=== PATIENT | male | born 1975 | race Caucasian/White ===

== ENCOUNTER 2023-05-17 11:47 | Day surgery (SDC) | payer OTHER ==
[~2023-05-17 11:47] MED LIST: ACETAMINOPHEN TAB 500 MG TAB PO PRN; DEXAMETHASONE SOD PHOSPHATE 4 MG/ML 1 ML VIAL IV ONE; HEPARIN SODIUM,PORCINE/PF 5,000 UNIT/0.5 ML SYRINGE SQ PRN; HYDROmorphone 0.5 MG/0.5 ML SYRINGE IVP PRN; LACTATED RINGERS 1,000 ML IV SCH; LIDOCAINE 1% (10MG/ML) FOR IV START INTRADERMA PRN; MIDAZOLAM 2 MG/2 ML VIAL IV PRN; ONDANSETRON 4 MG/2 ML VIAL IVP ONE; Pre Op ABX Message 1 EACH MISC MISCELLANE ONE
[2023-05-17 12:16] VITALS: RESP 16; TEMP 98.2
[2023-05-17 12:29] LABS: Glucose,Whole Blood 155 mg/dL (70-110)
[2023-05-17] MEDS ORDERED: fentaNYL (PF) 50 MCG/ML 2 ML AMP ONE (12:35)
[2023-05-17] MEDS ORDERED: KETAMINE HCL IN 0.9 % NACL 50 MG/5 ML SYRINGE ONE (12:35)
[2023-05-17] MEDS ORDERED: PROPOFOL 10 MG/ML 20 ML VIAL IV ONE (12:35)
[2023-05-17] MEDS ORDERED: MIDAZOLAM 2 MG/2 ML VIAL ONE (12:35)
[2023-05-17] MEDS ORDERED: LIDOCAINE 1%-EPI 1:100,000 50 ML VIAL SQ ONE ×2 (12:37)
[2023-05-17] MEDS ORDERED: traMADol 50 MG TAB PO PRN (12:55)
[2023-05-17] MEDS ORDERED: ACETAMINOPHEN TAB 325 MG TAB PO PRN (12:55)
[2023-05-17] MEDS ORDERED: HYDROmorphone 0.5 MG/0.5 ML SYRINGE IVP PRN (12:55)
[2023-05-17] MEDS ORDERED: LACTATED RINGERS 1,000 ML IV ONE (12:55)
[2023-05-17] MEDS ORDERED: NALOXONE 0.4 MG/ML 1 ML VIAL IV PRN (12:55)
--- NOTE | 2023-05-17 12:59 | P.OP ---
Date of Procedure: 05/17/23 Preoperative Diagnosis: Back abscess Postoperative Diagnosis: Chronic back abscess Procedure(s) Performed: Incision and drainage of chronic back abscess 15 cm Anesthesia: MAC Surgeon: Massimo Maki Estimated Blood Loss (ml): 5 Pathology: other (Wound culture) Condition: stable Disposition: PACU Description of Procedure: The patient's placed on the operative table in the lateral received IV sedation. His back was prepped and draped usual fashion. The patient had a deep cuta neous abscess. The abscess 15 cm diameter. The skin was incised with 15 blade. And then the abscess cavity is entered. Cultures were obtained. Approximately 50 mL of purulent fluid was removed. There is necrotic skin and fat in the abscess cavity. This was sharply debrided. The wound was then packed with wet-to-dry Kerlix dressing. Patient top she will. Sent to recovery room in stable condition.
[2023-05-17 13:53] VITALS: BP 166/84; PULSE 113
[2023-05-17] MEDS ORDERED: LEVOFLOXACIN 500MG-D5W PMX 500 MG in DEXTROSE/WATER 1 100ML.BAG IVPB SCH (14:00)
[2023-05-18] MEDS ORDERED: ENOXAPARIN 40 MG/0.4 ML SYRINGE SQ SCH (09:00)
== END 2023-05-17 16:54 | disposition left against medical advice (07) ==
LOC: OR 11:47 → 5NMEDONC 12:54 → OR 16:54
PROVIDERS: ATTEND Surgery
DX: L02.212 Cutaneous abscess of back [any part, except buttock and flank] (principal); E11.9 Type 2 diabetes mellitus without complications; I10 Essential (primary) hypertension; E78.5 Hyperlipidemia, unspecified; K21.9 Gastro-esophageal reflux disease without esophagitis; F17.210 Nicotine dependence, cigarettes, uncomplicated; Z88.5 Allergy status to narcotic agent; Z79.84 Long term (current) use of oral hypoglycemic drugs; Z88.8 Allergy status to other drugs, medicaments and biological substances; Z88.1 Allergy status to other antibiotic agents; Z79.899 Other long term (current) drug therapy
CPT/HCPCS: 10060; 87070; 87205; 87075; 87077; 87186; J2250; J1100; J0690; J2405; J3010; J2704; J1644

== ENCOUNTER 2024-01-16 08:29 | Day surgery (SDC) | payer OTHER ==
[2024-01-11 16:22] VITALS: BMI 26.4
[~2024-01-16 08:29] MED LIST changes: -ACETAMINOPHEN TAB 500 MG TAB PO PRN; -DEXAMETHASONE SOD PHOSPHATE 4 MG/ML 1 ML VIAL IV ONE; -HEPARIN SODIUM,PORCINE/PF 5,000 UNIT/0.5 ML SYRINGE SQ PRN; -HYDROmorphone 0.5 MG/0.5 ML SYRINGE IVP PRN; -LACTATED RINGERS 1,000 ML IV SCH; -LIDOCAINE 1% (10MG/ML) FOR IV START INTRADERMA PRN; -MIDAZOLAM 2 MG/2 ML VIAL IV PRN; -ONDANSETRON 4 MG/2 ML VIAL IVP ONE
[2024-01-16] MEDS ORDERED: MIDAZOLAM 2 MG/2 ML VIAL IV PRN (08:35)
[2024-01-16] MEDS ORDERED: DEXAMETHASONE SOD PHOSPHATE 4 MG/ML 1 ML VIAL IV ONE (08:35)
[2024-01-16] MEDS ORDERED: fentaNYL (PF) 50 MCG/ML 2 ML AMP IV PRN (08:35)
[2024-01-16] MEDS: IV FLUID CONTINUATION 1,000 ML IV ONE (08:57)
[2024-01-16 08:59] LABS: Glucose,Whole Blood 229 mg/dL (70-110)
[2024-01-16] MEDS: LACTATED RINGERS 1,000 ML IV SCH (09:01)
[2024-01-16 09:02] VITALS: RESP 16
[2024-01-16] MEDS: ONDANSETRON 4 MG/2 ML VIAL IVP ONE (09:09)
[2024-01-16] MEDS: SCOPOLAMINE 1 MG/72 HR PATCH TRANSDERM ONE (09:09)
[2024-01-16] MEDS: INSULIN ASPART (NovoLOG) 100 UNIT/ML VIAL SQ ONE (09:10)
[2024-01-16] MEDS ORDERED: ceFAZolin 1 GM/50 ML BAG (PMX) ONE (09:53)
[2024-01-16] MEDS ORDERED: SUCCINYLCHOLINE CHLORIDE 200 MG/10 ML VIAL IV ONE (09:53)
[2024-01-16] MEDS ORDERED: PROPOFOL 10 MG/ML 20 ML VIAL IV ONE (09:53)
[2024-01-16] MEDS ORDERED: fentaNYL (PF) 50 MCG/ML 2 ML AMP ONE (09:53)
[2024-01-16] MEDS ORDERED: LIDOCAINE 1% INJ 10MG/ML (20 ML MDV) ONE (09:53)
[2024-01-16] MEDS ORDERED: PHENYLEPHRINE 10 MG/ML VIAL ONE (09:53)
[2024-01-16] MEDS ORDERED: MIDAZOLAM 2 MG/2 ML VIAL ONE (09:53)
[2024-01-16] MEDS: LIDOCAINE 1%-EPI 1:100,000 20 ML VIAL SQ ONE ×2 (10:04→10:37)
[2024-01-16 10:52] VITALS: TEMP 97.6
--- NOTE | 2024-01-16 10:54 | P.OP ---
Date of Procedure: 01/16/24 Preoperative Diagnosis: infected sebaceous cyst with back abscess Postoperative Diagnosis: same Procedure(s) Performed: excision of infected sebaceous cyst/abscess Anesthesia: MEGANA Surgeon: Massimo Maki Estimated Blood Loss (ml): 5 Pathology: other (sebaceous cyst) Condition: stable Disposition: PACU Description of Procedure: the patient's placed on the operative table in the lateral position of receiving general anesthesia. His back was prepped and draped usual fashion. Patient had an area of indurated skin due to chronic abscess the sebaceous cyst. Elliptical skin incision was made. The specimen measured approximately 8 x 4 x 3 cm. left cautery used to dissect the specimen free and sent to pathology. The Bovie hemostasis. Ththe wound was packed with wet to dry Kerlix suture.
[2024-01-16 11:42] VITALS: BP 118/74; PULSE 75
== END 2024-01-16 11:56 | disposition home health service (06) ==
LOC: OR 08:29
PROVIDERS: ATTEND Surgery
DX: L02.212 Cutaneous abscess of back [any part, except buttock and flank] (principal); L72.3 Sebaceous cyst; M79.89 Other specified soft tissue disorders; I10 Essential (primary) hypertension; F32.A Depression, unspecified; K21.9 Gastro-esophageal reflux disease without esophagitis; E11.9 Type 2 diabetes mellitus without complications; F17.210 Nicotine dependence, cigarettes, uncomplicated; Z88.5 Allergy status to narcotic agent; Z91.012 Allergy to eggs; Z88.1 Allergy status to other antibiotic agents; Z79.899 Other long term (current) drug therapy
CPT/HCPCS: 11406; J2250; J0330; J2405; J2001; J3010; J0690; J2704; J2371; 88304

== ENCOUNTER 2024-10-16 20:46 | Observation (INO) | payer OTHER ==
[2024-10-16] MEDS: ONDANSETRON 4 MG/2 ML VIAL IVP STA (21:29)
[2024-10-16] MEDS: KETOROLAC 15 MG/ML 1 ML VIAL IVP STA (21:30)
[2024-10-16] MEDS: SODIUM CHLORIDE 0.9% 1,000 ML IV STA (21:30)
[2024-10-16 21:52] LABS: Basophils % (A) 0 %; Eosinophils # (A) 0.1 k/uL (0-0.7); Eosinophils % (A) 1 %; HCT 47.2 % (39.0-53.0); HGB 15.9 gm/dL (13.0-17.5); Lymphocytes % (A) 6 %; MCH 30.8 pg (25.0-35.0); MCHC 33.8 g/dL (31.0-37.0); MCV 91.2 fL (80.0-100.0); Monocytes # (A) 0.6 k/uL (0-1.0); Monocytes % (A) 4 %; Neutrophils # (A) 14.3 k/uL (1.3-7.7); Neutrophils % (A) 89 %; Platelet Count 321 k/uL (150-450); RBC 5.18 m/uL (4.30-5.90); RDW 12.7 % (11.5-15.5); WBC 16.1 k/uL (3.8-10.6)
[2024-10-16 22:03] LABS: ALT 15 U/L (4-49); AST 18 U/L (17-59); African American GFR (CKD) >90 (>60 ml/min/1.73 sqM); Albumin 4.6 g/dL (3.5-5.0); Alkaline Phosphatase 89 U/L (38-126); Amylase 43 U/L (30-110); Anion Gap 23 mmol/L; Blood Urea Nitrogen 41 mg/dL (9-20); Calcium 9.5 mg/dL (8.4-10.2); Carbon Dioxide 17 mmol/L (22-30); Chloride 94 mmol/L (98-107); Glucose 375 mg/dL (74-99); Lipase 23 U/L (23-300); Non-African American GFR(CKD) >90 (>60 ml/min/1.73 sqM); Potassium 4.3 mmol/L (3.5-5.1); Sodium 134 mmol/L (137-145); Total Bilirubin 0.9 mg/dL (0.2-1.3); Total Protein 7.5 g/dL (6.3-8.2)
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
[2024-10-16] MEDS: METOCLOPRAMIDE 5 MG/ML 2 ML VIAL IVP STA (22:28)
[2024-10-16 22:33] LABS: Influenza A Not Detected (Not Detectd); Influenza B Not Detected (Not Detectd); RSV Not Detected (Not Detectd)
[2024-10-17 00:18] LABS: Glucose,Whole Blood 336 mg/dL (70-110)
[2024-10-17] MEDS: INSULIN REGULAR 100 UNIT in SODIUM CHLORIDE 0.9% 100 ML IV SCH (00:36)
[2024-10-17 01:37] LABS: Glucose,Whole Blood 233 mg/dL (70-110)
[2024-10-17] MEDS: SODIUM CHLORIDE 0.9% 1,000 ML IV SCH (01:49)
[2024-10-17] MEDS: ONDANSETRON 4 MG/2 ML VIAL IVP STA (02:14)
[2024-10-17] MEDS: D5-0.45% NACL WITH KCL 20MEQ/L 1,000 ML IV SCH (02:15)
[2024-10-17 03:02] LABS: Glucose,Whole Blood 128 mg/dL (70-110)
[2024-10-17 04:11] LABS: Glucose,Whole Blood 128 mg/dL (70-110)
[2024-10-17 04:31] LABS: African American GFR (CKD) >90 (>60 ml/min/1.73 sqM); Anion Gap 11 mmol/L; Blood Urea Nitrogen 45 mg/dL (9-20); Carbon Dioxide 24 mmol/L (22-30); Chloride 98 mmol/L (98-107); Glucose 133 mg/dL (74-99); Non-African American GFR(CKD) >90 (>60 ml/min/1.73 sqM); Sodium 133 mmol/L (137-145)
[2024-10-17 05:14] LABS: Glucose,Whole Blood 162 mg/dL (70-110)
[2024-10-17 05:53] LABS: Appearance,Urine Clear (Clear); Bilirubin,Urine Negative (Negative); Blood,Urine Trace (Negative); Color,Urine Light Yellow; Glucose,Urine (UA) 4+ (Negative); Hyaline Casts,Urine 1 /lpf (0-2); Leukocyte Esterase,Urine Negative (Negative); Mucus,Urine Rare /hpf; Nitrite,Urine Negative (Negative); Protein,Urine 2+ (Negative); RBC,Urine 1 /hpf (0-5); Specific Gravity,Urine 1.032 (1.001-1.035); Urobilinogen,Urine <2.0 mg/dL (<2.0); WBC,Urine 1 /hpf (0-5)
[2024-10-17 06:10] LABS: Ketones,Urine 2+ (Negative)
[2024-10-17 06:15] LABS: Glucose,Whole Blood 184 mg/dL (70-110)
[2024-10-17] MEDS: HYDROcodone/APAP 10-325MG 1 EACH TAB PO PRN (06:16)
[2024-10-17 07:29] LABS: Glucose,Whole Blood 195 mg/dL (70-110)
[2024-10-17 07:51] LABS: Sodium 131 mmol/L (137-145)
[2024-10-17 07:52] LABS: African American GFR (CKD) >90 (>60 ml/min/1.73 sqM); Anion Gap 10 mmol/L; Blood Urea Nitrogen 39 mg/dL (9-20); Carbon Dioxide 24 mmol/L (22-30); Chloride 97 mmol/L (98-107); Glucose 188 mg/dL (74-99); Non-African American GFR(CKD) >90 (>60 ml/min/1.73 sqM); Potassium 4.1 mmol/L (3.5-5.1)
[2024-10-17] MEDS: ONDANSETRON 4 MG/2 ML VIAL IVP PRN (08:08)
[2024-10-17 08:30] LABS: Glucose,Whole Blood 178 mg/dL (70-110)
[2024-10-17 09:29] LABS: Glucose,Whole Blood 168 mg/dL (70-110)
[2024-10-17 10:29] LABS: Glucose,Whole Blood 173 mg/dL (70-110)
[2024-10-17 10:39] LABS: ALT 13 U/L (4-49); AST 24 U/L (17-59); African American GFR (CKD) >90 (>60 ml/min/1.73 sqM); Alkaline Phosphatase 78 U/L (38-126); Anion Gap 10 mmol/L; Blood Urea Nitrogen 33 mg/dL (9-20); Calcium 9.1 mg/dL (8.4-10.2); Carbon Dioxide 24 mmol/L (22-30); Chloride 100 mmol/L (98-107); Glucose 175 mg/dL (74-99); Non-African American GFR(CKD) >90 (>60 ml/min/1.73 sqM); Potassium 3.9 mmol/L (3.5-5.1); Sodium 134 mmol/L (137-145); Total Bilirubin 0.6 mg/dL (0.2-1.3); Total Protein 6.9 g/dL (6.3-8.2)
[2024-10-17 11:40] LABS: Glucose,Whole Blood 166 mg/dL (70-110)
[2024-10-17 13:12] LABS: Glucose,Whole Blood 139 mg/dL (70-110)
[2024-10-17 14:11] LABS: Glucose,Whole Blood 151 mg/dL (70-110)
[2024-10-17 15:44] LABS: Glucose,Whole Blood 144 mg/dL (70-110)
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
[2024-10-17 17:54] LABS: Glucose,Whole Blood 155 mg/dL (70-110)
[2024-10-17] MEDS: GABAPENTIN 300 MG CAP PO SCH (17:55)
[2024-10-17] MEDS: ATORVASTATIN 10 MG TAB PO SCH (17:55)
[2024-10-17] MEDS: METOPROLOL SUCCINATE (ER) 25 MG TAB.ER.24H PO SCH (17:55)
[2024-10-17] MEDS: DAPAGLIFLOZIN PROPANEDIOL 10 MG TABLET PO SCH (17:56)
[2024-10-17] MEDS: FAMOTIDINE 20 MG TAB PO SCH (17:56)
[2024-10-17] MEDS: INSULIN LISPRO (HumaLOG) 100 UNIT/ML 10 mL VL SQ SCH (18:06)
[2024-10-17] MEDS: SODIUM CHLORIDE 0.9% 1,000 ML IV STA (18:07)
[2024-10-17] MEDS: HYDROcodone/APAP 10-325MG 1 EACH TAB PO SCH (18:09)
--- NOTE | 2024-10-17 19:39 | CT ---
EXAMINATION TYPE: CT abdomen pelvis wo con DATE OF EXAM: 10/17/2024 5:33 PM COMPARISON: Previous CT study dated 07/15/2014. CLINICAL INDICATION: Male, 49 years old with history of Abdominal pain and vomiting; Abdominal pain a nd cramping TECHNIQUE: Axial CT abdomen pelvis wo con;Sagittal and coronal reformats were created on a separate workstation. Oral contrast used: without Oral Contrast (none if empty) CT DLP: 632.1 mGycm, Automated exposure control for dose reduction was used. FINDINGS: LOWER CHEST: No acute abnormality. Partially visualized coronary artery calcifications. ABDOMEN LIVER: Diffusely hypoattenuating parenchyma. GALLBLADDER AND BILE DUCTS: Unremarkable. PANCREAS: Unremarkable. SPLEEN: Unremarkable. ADRENAL GLANDS: Unremarkable. KIDNEYS AND URETERS: No evidence of hydronephrosis or renal calculus. The ureters are unremarkable. PELVIS BLADDER: Circumferential wall thickening. REPRODUCTIVE: Unremarkable. ABDOMEN & PELVIS STOMACH AND BOWEL: . Scattered diverticula are noted throughout the colon. No evidence of bowel obstr uction. Impacted rectosigmoid colonic stool with mild wall thickening and adjacent fat stranding. Temi endix is normal. PERITONEUM/RETROPERITONEUM: No evidence of pneumoperitoneum or free fluid. VASCULATURE: No evidence of aortic aneurysm. MUSCULOSKELETAL: No acute osseous abnormalities LYMPH NODES: No gross evidence for lymphadenopathy. SOFT TISSUE/ABDOMINAL WALL: Unremarkable IMPRESSION: 1. Impacted rectosigmoid colonic stool with additional findings suggesting mild stercoral colitis. 2. Circumferential urinary bladder wall thickening, recommend correlation with urinalysis for cystit is. 3. Moderate diverticulosis. [facility], , 10/17/2024 7:37 PM
[2024-10-17 21:42] LABS: Glucose,Whole Blood 138 mg/dL (70-110)
[2024-10-18 05:35] LABS: Glucose,Whole Blood 160 mg/dL (70-110)
[2024-10-18 07:39] LABS: Glucose,Whole Blood 120 mg/dL (70-110)
[2024-10-18] MEDS: PIOGLITAZONE 15 MG TAB PO SCH (08:30)
[2024-10-18] MEDS: INSULIN GLARGINE (LANTUS) 100 UNIT/ML SYR SQ SCH (08:30)
[2024-10-18 10:15] LABS: Basophils # (A) 0.05 X 10*3/uL (0.00-0.10); Basophils % (A) 0.4 %; Eosinophils # (A) 0 X 10*3/uL (0.04-0.35); Eosinophils % (A) 0 %; HCT 45.6 % (39.6-50.0); HGB 15.2 g/dL (13.0-17.0); Lymphocytes # (A) 1.46 X 10*3/uL (0.90-5.00); Lymphocytes % (A) 12.1 %; MCH 30.7 pg (27.0-32.0); MCHC 33.3 g/dL (32.0-37.0); MCV 92.1 FL (80.0-97.0); Mean Platelet Volume 10.8 FL (9.5-12.2); Monocytes # (A) 0.86 X 10*3/uL (0.20-1.00); Monocytes % (A) 7.1 %; NRBC Per 100 WBC 0 X 10*3/uL (0.00-0.01); Neutrophils # (A) 9.66 X 10*3/uL (1.80-7.70); Neutrophils % (A) 79.9 %; Platelet Count 269 X 10*3/uL (140-440); RBC 4.95 X 10*6/uL (4.40-5.60); RDW 12.5 % (11.5-14.5); WBC 12.09 X 10*3/uL (4.50-10.00)
[2024-10-18 11:04] LABS: ALT 13 U/L (10-49); AST 27 U/L (14-35); Albumin/Globulin Ratio 1.43 Ratio (1.60-3.17); Alkaline Phosphatase 82 U/L (41-126); BUN/Creat Ratio 27.75 Ratio (12.00-20.00); Blood Urea Nitrogen 22.2 mg/dL (9.0-27.0); Calcium 9.3 mg/dL (8.7-10.3); Carbon Dioxide 20.2 mmol/L (21.6-31.8); Chloride 98 mmol/L (96-109); Globulin 2.8 g/dL (1.6-3.3); Glucose 132 mg/dL (70-110); Potassium 4.1 mmol/L (3.5-5.5); Sodium 134 mmol/L (135-145); Total Bilirubin 0.5 mg/dL (0.3-1.2); Total Protein 6.8 g/dL (6.2-8.2)
[2024-10-18 12:18] LABS: Glucose,Whole Blood 123 mg/dL (70-110)
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
[2024-10-18 15:24] VITALS: BMI 24.4
[2024-10-18] MEDS: LACTULOSE 20 GM/30 ML CUP PO SCH (15:50)
--- NOTE | 2024-10-18 20:14 | P.PN ---
Subjective Progress Note Date: 10/18/24 Kurt Joseph, is a 49-year-old male who presented to [facility] with a chief complaint of abdominal pain nausea and vomiting He was evaluated in the emergency room vital examination on presentation revealed a temperature of 97.8 pulse 119 respiration 20 blood pressure 176/103 pulse ox 99% on room air Laboratory data revealed a white blood count of 16.1 hemoglobin 15.9 platelet count 321 sodium 134 potassium 4.3 chloride 94 CO2 17 BUN 41 creatinine 0.98 lactic acid 2.8 Patient was started on IV fluid and insulin drip and admitted to telemetry floor Past medical history is significant for insulin-dependent diabetes mellitus, hypertension, hyperlipidemia, depression, peripheral vascular disease with previous history of lower extremity amputation, underlying history of tobacco abuse, history of peripheral neuropathy, history of gastroparesis, with gastroesophageal reflux disease. On 10/18/2024 patient was seen and examined on the medical floor he is alert and oriented x 3 in no apparent distress he is still complaining of abdominal pain CT scan of the abdomen was done and revealed evidence of constipation with colitis, patient will be kept on full liquid diet surgical consultation was requested, otherwise patient denies any complaints there is no fever or chills no headache or dizziness no chest pain no shortness of breath no cough no nausea or vomiting no diarrhea no blood in the stools and no urinary symptoms. Objective - Vital Signs Vital signs: Vital Signs Temp 97.9 F 10/18/24 12:14 Pulse 90 10/18/24 12:14 Resp 18 10/18/24 12:14 BP 138/61 10/18/24 12:14 Pulse Ox 96 10/18/24 12:14 FiO2 Intake & Output 10/17/24 10/18/24 10/18/24 18:59 06:59 18:59 Intake Total 18.661 Output Total 700 Balance 18.661 -700 Weight 81.647 kg Intake: Intake, IV Titration 18.661 Amount Insulin Regular 100 unit 18.661 In Sodium Chloride 0.9% 100 ml @ 0.1 UNITS/KG/HR 8.246 mls/hr IV .[id number] [facility] Rx#:[id number] Output: Urine 700 Other: Voiding Method Urinal - Exam In general patient is alert and oriented x 3 in no distress HEENT head normocephalic and atraumatic Neck is supple no JVD no goiter no lymphadenopathy no carotid bruit Chest examination is clear to auscultation no crackles no wheezing Cardiac exam reveals regular heart sounds S1 and S2 no gallops no murmurs Abdomen is soft with moderate to severe tenderness mostly in the epigastric area no organomegaly no palpable masses Extremity exam reveals no edema no cyanosis or clubbing Neurological examination reveals no gross focal deficits - Labs CBC & Chem 7: 10/18/24 07:09 10/18/24 07:09 Labs: Abnormal Lab Results - Last 24 Hours (Table) 10/17/24 10/17/24 10/17/24 Range/Units 14:09 15:43 17:53 WBC (4.50-10.00) X 10*3/uL Immature Gran # (0.00-0.04) X 10*3/uL Neutrophils # (1.80-7.70) X 10*3/uL Eosinophils # (0.04-0.35) X 10*3/uL Sodium (135-145) mmol/L Carbon Dioxide (21.6-31.8) mmol/L Anion Gap (4.00-12.00) mmol/L BUN/Creatinine Ratio (12.00-20.00) Ratio Glucose (70-110) mg/dL POC Glucose (mg/dL) 151 H 144 H 155 H (70-110) mg/dL Albumin/Globulin Ratio (1.60-3.17) Ratio 10/17/24 10/18/24 10/18/24 Range/Units 21:41 05:33 07:09 WBC 12.09 H (4.50-10.00) X 10*3/uL Immature Gran # 0.06 H (0.00-0.04) X 10*3/uL Neutrophils # 9.66 H (1.80-7.70) X 10*3/uL Eosinophils # 0 L (0.04-0.35) X 10*3/uL Sodium (135-145) mmol/L Carbon Dioxide (21.6-31.8) mmol/L Anion Gap (4.00-12.00) mmol/L BUN/Creatinine Ratio (12.00-20.00) Ratio Glucose (70-110) mg/dL POC Glucose (mg/dL) 138 H 160 H (70-110) mg/dL Albumin/Globulin Ratio (1.60-3.17) Ratio 10/18/24 10/18/24 10/18/24 Range/Units 07:09 07:37 12:16 WBC (4.50-10.00) X 10*3/uL Immature Gran # (0.00-0.04) X 10*3/uL Neutrophils # (1.80-7.70) X 10*3/uL Eosinophils # (0.04-0.35) X 10*3/uL Sodium 134 L (135-145) mmol/L Carbon Dioxide 20.2 L (21.6-31.8) mmol/L Anion Gap 15.80 H (4.00-12.00) mmol/L BUN/Creatinine Ratio 27.75 H (12.00-20.00) Ratio Glucose 132 H (70-110) mg/dL POC Glucose (mg/dL) 120 H 123 H (70-110) mg/dL Albumin/Globulin Ratio 1.43 L (1.60-3.17) Ratio
[2024-10-18] MEDS: DOCUSATE 100 MG CAP PO SCH (22:42)
[2024-10-19 07:51] VITALS: RESP 19
[2024-10-19 08:01] LABS: Basophils # (A) 0.07 X 10*3/uL (0.00-0.10); Basophils % (A) 0.7 %; Eosinophils # (A) 0.02 X 10*3/uL (0.04-0.35); Eosinophils % (A) 0.2 %; HCT 45.1 % (39.6-50.0); HGB 15.4 g/dL (13.0-17.0); Lymphocytes # (A) 2.11 X 10*3/uL (0.90-5.00); Lymphocytes % (A) 20.2 %; MCH 30.9 pg (27.0-32.0); MCHC 34.1 g/dL (32.0-37.0); MCV 90.4 FL (80.0-97.0); Mean Platelet Volume 10.4 FL (9.5-12.2); Monocytes # (A) 1.15 X 10*3/uL (0.20-1.00); NRBC Per 100 WBC 0 X 10*3/uL (0.00-0.01); Neutrophils # (A) 7.04 X 10*3/uL (1.80-7.70); Neutrophils % (A) 67.5 %; Platelet Count 263 X 10*3/uL (140-440); RBC 4.99 X 10*6/uL (4.40-5.60); RDW 12.5 % (11.5-14.5); WBC 10.43 X 10*3/uL (4.50-10.00)
[2024-10-19 08:10] LABS: BUN/Creat Ratio 27.75 Ratio (12.00-20.00); Blood Urea Nitrogen 22.2 mg/dL (9.0-27.0); Chloride 102 mmol/L (96-109); Glucose 116 mg/dL (70-110); Potassium 4.1 mmol/L (3.5-5.5); Sodium 135 mmol/L (135-145)
[2024-10-19 08:11] LABS: ALT 11 U/L (10-49); AST 21 U/L (14-35); Albumin/Globulin Ratio 1.43 Ratio (1.60-3.17); Alkaline Phosphatase 83 U/L (41-126); Calcium 9.3 mg/dL (8.7-10.3); Globulin 2.8 g/dL (1.6-3.3); Total Bilirubin 0.6 mg/dL (0.3-1.2); Total Protein 6.8 g/dL (6.2-8.2)
--- NOTE | 2024-10-19 12:23 | P.PN ---
Subjective Progress Note Date: 10/19/24 SURGICAL PROGRESS NOTE CHIEF COMPLAINT: Nausea and vomiting HISTORY OF PRESENT ILLNESS: Patient received soapsuds enemas, lactulose and stool softener for impaction. Patient reports having multiple bowel movements. He denies any abdominal pain. He is tolerating a full liquid diet. He reports that he wants to go home today. WBC is down from 12-10.43 blood sugar better controlled. Patient refused the lactulose and stool softener this morning. He denies any nausea or vomiting. PHYSICAL EXAM: VITAL SIGNS: Reviewed. GENERAL: Well-developed in no acute distress. ABDOMEN: Soft. Nondistended. Nontender. NEUROLOGIC: Alert and oriented. Cranial nerves II through XII grossly intact. ASSESSMENT: 1. Stool impaction 2. Mild stercoral colitis 3. Daily narcotic use for chronic pain 4. Insulin-dependent diabetes with elevated blood sugars 5. Elevated lactic acid level on admission improved with IV fluids PLAN: -Continue lactulose and Colace -Continue to monitor Physician Bb Shot Packer note has been reviewed by physician. Signing provider agrees with the documented findings, assessment, and plan of care. I have personally seen and examined the patient, reviewed the DIRECTOR OF AUDIOLOGY /PAs history, exam and MDM and agree with the assessment and plan as written. Based on total visit time, I have performed more than 50% of the visit. As above: Patient is doing well today. No abdominal pain or nausea. Tolerating diet. Multiple bowel movements. Did discuss the option of a digital rectal exa mination. Patient refusing but I do not really think he needs one regardless. May advance to regular foods. May discharge. Objective - Vital Signs Vital signs: Vital Signs Temp 98.7 F 10/19/24 07:07 Pulse 89 10/19/24 07:07 Resp 19 10/19/24 07:07 BP 139/73 10/19/24 07:07 Pulse Ox 96 10/19/24 07:07 FiO2 Intake & Output 10/18/24 10/19/24 10/19/24 18:59 06:59 18:59 Output Total 700 200 Balance -700 -200 Weight 81.647 kg Output: Urine 700 200 Other: Voiding Method Urinal Urinal # Bowel Movements 1 - Labs CBC & Chem 7: 10/19/24 05:18 10/19/24 05:18 Labs: Abnormal Lab Results - Last 24 Hours (Table) 10/18/24 10/19/24 10/19/24 Range/Units 12:16 05:18 05:18 WBC 10.43 H (4.50-10.00) X 10*3/uL Monocytes # 1.15 H (0.20-1.00) X 10*3/uL Eosinophils # 0.02 L (0.04-0.35) X 10*3/uL Carbon Dioxide 21.0 L (21.6-31.8) mmol/L BUN/Creatinine Ratio 27.75 H (12.00-20.00) Ratio Glucose 116 H (70-110) mg/dL POC Glucose (mg/dL) 123 H (70-110) mg/dL Albumin/Globulin Ratio 1.43 L (1.60-3.17) Ratio
[2024-10-19 12:38] LABS: Glucose,Whole Blood 125 mg/dL (70-110)
[2024-10-19 13:46] VITALS: BP 136/90; PULSE 94; TEMP 97.9
--- NOTE | 2024-10-19 14:45 | P.DS ---
Providers Date of admission: 10/17/24 00:07 Expected date of discharge: 10/19/24 Attending physician: Kathy Humphrey Consults: 10/18/24 13:49 Consult Physician Routine Consulting Provider: Oren Fierro Consult Reason/Comments: colitis Do you want consulting provider notified?: Yes Primary care physician: Kathy Milagro [facility] Course: Diagnosis on discharge: Gastroenteritis with abdominal pain nausea and vomiting Diabetic ketoacidosis Underlying history of insulin-dependent diabetes mellitus Underlying history of severe peripheral vascular disease Underlying history of peripheral neuropathy Current smoker, counseled regarding smoking cessation Underlying history of depression Underlying history of gastroparesis with gastroesophageal reflux disease Hospital course: Kurt Joseph, is a 49-year-old male who presented to [facility] with a chief complaint of abdominal pain nausea and vomiting He was evaluated in the emergency room vital examination on presentation revealed a temperature of 97.8 pulse 119 respiration 20 blood pressure 176/103 pulse ox 99% on room air Laboratory data revealed a white blood count of 16.1 hemoglobin 15.9 platelet count 321 sodium 134 potassium 4.3 chloride 94 CO2 17 BUN 41 creatinine 0.98 lactic acid 2.8 Patient was started on IV fluid and insulin drip and admitted to telemetry floor Past medical history is significant for insulin-dependent diabetes mellitus, hypertension, hyperlipidemia, depression, peripheral vascular disease with previous history of lower extremity amputation, underlying history of tobacco abuse, history of peripheral neuropathy, history of gastroparesis, with gastroesophageal reflux disease. On 10/18/2024 patient was seen and examined on the medical floor he is alert and oriented x 3 in no apparent distress he is still complaining of abdominal pain CT scan of the abdomen was done and revealed evidence of constipation with colit is, patient will be kept on full liquid diet surgical consultation was requested, otherwise patient denies any complaints there is no fever or chills no headache or dizziness no chest pain no shortness of breath no cough no nausea or vomiting no diarrhea no blood in the stools and no urinary symptoms. On 10/19/2024 patient was seen and examined on the medical floor he is alert and oriented x 3 in no apparent distress there is no fever or chills no headache or dizziness no chest pain no shortness of breath no cough no nausea or vomiting no abdominal pain no diarrhea and no urinary symptoms. Patient was evaluated by surgery and was cleared for discharge. He will be discharged to home today he will be followed in our office on Tuesday morning Patient Condition at Discharge: Fair Plan - Discharge Summary Discharge Rx Participant: No New Discharge Prescriptions: New Lactulose [Cephulac] 30 gm PO BID 30 Days #600 ml Docusate [Colace] 100 mg PO BID 30 Days #60 cap Continue Gabapentin 300 mg PO TID Metoprolol Succinate (ER) [Toprol XL] 25 mg PO DAILY Empagliflozin [Jardiance] 25 mg PO DAILY Atorvastatin [Lipitor] 10 mg PO DAILY Mupirocin 2% Oint [Bactroban 2% Oint] 1 applic TOPICAL TID lisinopriL 2.5 mg PO DAILY HYDROcodone/APAP 10-325MG [[place] 10-325] 1 tab PO QID Famotidine [Pepcid] 20 mg PO BID Insulin Glargine,Hum.rec.anlog [Lantus Solostar Pen] 40 units SQ DAILY Insulin Lispro [humaLOG Kwikpen] See Protocol SQ AC-TID Discontinued Pioglitazone [Actos] 15 mg PO DAILY Flexeril (Unverified) 1 tab PO HS Discharge Medication List Empagliflozin [Jardiance] 25 mg PO DAILY 05/12/23 [History] Famotidine [Pepcid] 20 mg PO BID 05/12/23 [History] Gabapentin 300 mg PO TID 05/12/23 [History] HYDROcodone/APAP 10-325MG [[place] 10-325] 1 tab PO QID 05/12/23 [History] Metoprolol Succinate (ER) [Toprol XL] 25 mg PO DAILY 05/12/23 [History] lisinopriL 2.5 mg PO DAILY 05/12/23 [History] Atorvastatin [Lipitor] 10 mg PO DAILY 10/17/24 [History] Insulin Glargine,Hum.rec.anlog [Lantus Solostar Pen] 40 units SQ DAILY 10/17/24 [History] Insulin Lispro [humaLOG Kwikpen] See Protocol SQ AC-TID 10/17/24 [History] Mupirocin 2% Oint [Bactroban 2% Oint] 1 applic TOPICAL TID 10/17/24 [History] Docusate [Colace] 100 mg PO BID 30 Days #60 cap 10/19/24 [Rx] Lactulose [Cephulac] 30 gm PO BID 30 Days #600 ml 10/19/24 [Rx] Follow up Appointment(s)/Referral(s): Kathy Humphrey MD [Primary Care Provider] - 1-2 days (Please call the office to schedule a follow up appointment)
== END 2024-10-19 17:29 | disposition home or self-care (01) ==
LOC: EC 20:46 → 3SCARD 10-17 00:07 → 5NMEDONC 10-17 20:45
PROVIDERS: ADMIT Internal Medicine; ATTEND Internal Medicine
DX: E11.10 Type 2 diabetes mellitus with ketoacidosis without coma (principal); K52.89 Other specified noninfective gastroenteritis and colitis; K57.30 Diverticulosis of large intestine without perforation or abscess without bleeding; K56.41 Fecal impaction; E11.43 Type 2 diabetes mellitus with diabetic autonomic (poly)neuropathy; K31.84 Gastroparesis; E11.42 Type 2 diabetes mellitus with diabetic polyneuropathy; I10 Essential (primary) hypertension; E11.51 Type 2 diabetes mellitus with diabetic peripheral angiopathy without gangrene; I73.9 Peripheral vascular disease, unspecified; K21.9 Gastro-esophageal reflux disease without esophagitis; E78.5 Hyperlipidemia, unspecified; F32.A Depression, unspecified; F12.90 Cannabis use, unspecified, uncomplicated; F17.200 Nicotine dependence, unspecified, uncomplicated; G89.29 Other chronic pain; Z79.891 Long term (current) use of opiate analgesic; Z79.84 Long term (current) use of oral hypoglycemic drugs; Z79.4 Long term (current) use of insulin; Z79.899 Other long term (current) drug therapy; Z88.2 Allergy status to sulfonamides; Z88.1 Allergy status to other antibiotic agents; Z91.012 Allergy to eggs; Z88.5 Allergy status to narcotic agent; Z91.013 Allergy to seafood; Z11.52 Encounter for screening for COVID-19; Z11.59 Encounter for screening for other viral diseases; Z89.511 Acquired absence of right leg below knee; Z71.6 Tobacco abuse counseling
CPT/HCPCS: 96376 ×4; 96361 ×3; 96365; 96375; 99285; 36415; 80051; 80053 ×4; 82150; 82565; 82009; 83605 ×2; 83690; 84100; 82947; 84520; 85025 ×3; 81001; 83036; 87636; 74176; G0378 ×4; J2765; J2405 ×4; J1885

== ENCOUNTER 2024-10-26 18:49 | Observation (INO) | payer OTHER ==
[2024-10-26 21:26] LABS: Basophils % (A) 0 %; Eosinophils # (A) 0.4 k/uL (0-0.7); Eosinophils % (A) 4 %; HCT 40.6 % (39.0-53.0); HGB 13.4 gm/dL (13.0-17.5); Lymphocytes # (A) 2.2 k/uL (1.0-4.8); Lymphocytes % (A) 20 %; MCH 31.2 pg (25.0-35.0); MCV 94.5 fL (80.0-100.0); Mean Platelet Volume 8.1; Monocytes # (A) 0.6 k/uL (0-1.0); Monocytes % (A) 5 %; Neutrophils # (A) 7.4 k/uL (1.3-7.7); Neutrophils % (A) 70 %; Platelet Count 336 k/uL (150-450); WBC 10.7 k/uL (3.8-10.6)
--- NOTE | 2024-10-26 21:33 | XR ---
EXAMINATION TYPE: XR foot limited LT DATE OF EXAM: 10/26/2024 9:24 PM COMPARISON: None CLINICAL INDICATION: Male, 49 years old with history of left foot infection; PHH, pain TECHNIQUE: XR foot limited LT examined in the AP, oblique, and lateral projections. FINDINGS: Soft tissue swelling throughout the foot most pronounced in the dorsal aspect. Amputation o f the first digit metatarsal no evidence for osseous erosion. Incidental note is made of symphalangis m of the fifth distal interphalangeal joint. Multifocal degeneration changes throughout the joints of the foot with osteophyte formation and joint space narrowing. IMPRESSION: 1. Amputation of the first digit metatarsal without evidence for osteomyelitis. Cellulitis changes a re present with soft tissue swelling. 2. No evidence of acute fracture. 3. Multifocal degeneration changes throughout the joints of the foot. [facility], , 10/26/2024 9:31 PM
[2024-10-26] MEDS: ACETAMINOPHEN IV (For NPO) 1,000 MG in EMPTY BAG 1 BAG IVPB STA (21:52)
[2024-10-26 22:29] LABS: ALT 14 U/L (4-49); African American GFR (CKD) >90 (>60 ml/min/1.73 sqM); Albumin 3.6 g/dL (3.5-5.0); Anion Gap 9 mmol/L; Blood Urea Nitrogen 17 mg/dL (9-20); C Reactive Protein 4.1 mg/dL (<1.0); Calcium 8.9 mg/dL (8.4-10.2); Carbon Dioxide 21 mmol/L (22-30); Chloride 104 mmol/L (98-107); Glucose 273 mg/dL (74-99); Non-African American GFR(CKD) >90 (>60 ml/min/1.73 sqM); Sodium 134 mmol/L (137-145); Total Bilirubin 0.5 mg/dL (0.2-1.3); Total Protein 6.5 g/dL (6.3-8.2)
[2024-10-26 22:32] LABS: AST 20 U/L (17-59); Alkaline Phosphatase 93 U/L (38-126); Potassium 5.2 mmol/L (3.5-5.1)
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
[2024-10-26] MEDS: SODIUM CHLORIDE 0.9% 1,000 ML IV STA (23:52)
[2024-10-26] MEDS ORDERED: ACETAMINOPHEN TAB 325 MG TAB PO PRN (23:58)
[2024-10-26] MEDS ORDERED: NALOXONE 0.4 MG/ML 1 ML VIAL IV PRN (23:58)
[2024-10-27] MEDS: SODIUM CHLORIDE 0.9% 1,000 ML IV SCH (00:28)
--- NOTE | 2024-10-27 00:50 | US ---
EXAM: US Duplex Left Lower Extremity Veins CLINICAL HISTORY: US Reason: left lower extremity edema TECHNIQUE: Real-time duplex ultrasound scan of the left lower extremity veins integrating B-mode two-dimensional vascular structure, Doppler spectral analysis, color flow Doppler imaging and compression. COMPARISON: No relevant prior studies available. FINDINGS: Deep veins: Unremarkable. No DVT in the visualized common femoral, femoral, proximal deep femoral or popliteal veins. The veins demonstrate normal color flow, are normally compressible, with normal phasic flow and/or augmentation response. Superficial veins: Unremarkable. No thrombus in the visualized great saphenous vein. Soft tissues: No acute findings. No popliteal cyst. IMPRESSION: Negative left lower extremity duplex venous ultrasound. No evidence of DVT.
[2024-10-27] MEDS: HYDROcodone/APAP 10-325MG 1 EACH TAB PO PRN (01:50)
[2024-10-27] MEDS ORDERED: DEXTROSE 50% SYRINGE 50 ML IVP PRN ×2 (08:25)
[2024-10-27] MEDS ORDERED: VANCOMYCIN IV PER PHARMACY 1 EACH MISC MISCELLANE PRN (08:27)
[2024-10-27] MEDS: VANCOMYCIN 1,500 MG in SODIUM CHLORIDE 0.9% 500 ML 500 ML IVPB SCH (09:12)
[2024-10-27] MEDS: NICOTINE 21MG/24HR PATCH TRANSDERM SCH (09:12)
[2024-10-27] MEDS: MUPIROCIN 2% OINT 22 GM TUBE TOPICAL SCH (09:16)
[2024-10-27] MEDS: ATORVASTATIN 10 MG TAB PO SCH (09:17)
[2024-10-27] MEDS: DOCUSATE 100 MG CAP PO SCH (09:17)
[2024-10-27] MEDS: DAPAGLIFLOZIN PROPANEDIOL 10 MG TABLET PO SCH (09:17)
[2024-10-27] MEDS: FAMOTIDINE 20 MG TAB PO SCH (09:17)
[2024-10-27] MEDS: LACTULOSE 20 GM/30 ML CUP PO SCH (09:18)
[2024-10-27] MEDS: GABAPENTIN 300 MG CAP PO SCH (09:18)
[2024-10-27] MEDS: LACTOBACILLUS ACIDOPHILUS/PECT 1 EACH CAPSULE PO SCH (09:18)
[2024-10-27] MEDS: METOPROLOL SUCCINATE (ER) 25 MG TAB.ER.24H PO SCH (09:19)
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
[2024-10-27 12:35] VITALS: BMI 25.4
[2024-10-27] MEDS: INSULIN GLARGINE (LANTUS) 100 UNIT/ML SYR SQ SCH (12:58)
[2024-10-27] MEDS: INSULIN LISPRO (HumaLOG) 100 UNIT/ML 10 mL VL SQ SCH (12:59)
[2024-10-27] MEDS: ONDANSETRON 4 MG/2 ML VIAL IVP PRN (16:09)
[2024-10-27 16:37] LABS: Glucose,Whole Blood 170 mg/dL (70-110)
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
[2024-10-28] MEDS: VANCOMYCIN TROUGH DUE 1 EACH MISC MISCELLANE ONE (07:40)
[2024-10-28 07:43] LABS: Basophils % (A) 0 %; Eosinophils # (A) 0.1 k/uL (0-0.7); Eosinophils % (A) 1 %; HCT 42.9 % (39.0-53.0); HGB 13.8 gm/dL (13.0-17.5); Lymphocytes # (A) 1.6 k/uL (1.0-4.8); Lymphocytes % (A) 15 %; MCH 29.5 pg (25.0-35.0); MCHC 32.2 g/dL (31.0-37.0); MCV 91.4 fL (80.0-100.0); Mean Platelet Volume 7.3; Monocytes # (A) 0.4 k/uL (0-1.0); Monocytes % (A) 4 %; Neutrophils # (A) 8.5 k/uL (1.3-7.7); Neutrophils % (A) 79 %; Platelet Count 320 k/uL (150-450); RBC 4.69 m/uL (4.30-5.90); RDW 12.4 % (11.5-15.5); WBC 10.7 k/uL (3.8-10.6)
[2024-10-28 08:05] LABS: ALT 13 U/L (4-49); AST 16 U/L (17-59); African American GFR (CKD) >90 (>60 ml/min/1.73 sqM); Albumin 3.4 g/dL (3.5-5.0); Albumin/Globulin Ratio 1.2; Alkaline Phosphatase 99 U/L (38-126); Anion Gap 10 mmol/L; Blood Urea Nitrogen 11 mg/dL (9-20); Carbon Dioxide 22 mmol/L (22-30); Chloride 102 mmol/L (98-107); Globulin 2.9 g/dL; Glucose 128 mg/dL (74-99); Non-African American GFR(CKD) >90 (>60 ml/min/1.73 sqM); Potassium 4.2 mmol/L (3.5-5.1); Sodium 134 mmol/L (137-145); Total Bilirubin 0.5 mg/dL (0.2-1.3); Total Protein 6.3 g/dL (6.3-8.2)
[2024-10-28] MEDS: ENOXAPARIN 40 MG/0.4 ML SYRINGE SQ SCH (08:46)
[2024-10-28] MEDS: KETOROLAC 15 MG/ML 1 ML VIAL IVP PRN (08:57)
--- NOTE | 2024-10-28 09:22 | P.PN ---
Subjective Progress Note Date: 10/28/24 Kurt Joseph, is a 49-year-old male, who presented to [facility] emergency room, with a chief complaint of left foot swelling pain and erythema, patient was treated as outpatient with oral Keflex without significant improvement. He was evaluated in the emergency room vital examination on presentation revealed a temperature of 97.9 pulse 93 respirations 17 blood pressure 111/70 Laboratory data revealed a white blood count of 10.7 hemoglobin 13.4 platelet count 336 sodium 134 potassium 5.2 BUN 17 creatinine 0.83 Testing in the emergency room revealed left foot x-ray in the emergency room revealed amputation of the first digit metatarsal without evidence of for osteomyelitis, cellulitis changes are present with soft tissue swelling Patient was admitted to medical floor for further evaluation and treatment. On 10/28/2024 patient is alert and oriented x 3. Patient still having pain and swelling to foot. Patient remains on IV Vanco per infectious disease. Current vital signs temp 98.6, heart rate 98, respiratory rate 16, blood pressure 139/79 with a pulse ox of 95% on room air. Patient denies chest pain or shortness of breath. Patient denies nausea vomiting or diarrhea. Patient denies any urinary burning or frequency Objective - Vital Signs Vital signs: Vital Signs Temp 98.6 F 10/28/24 07:11 Pulse 98 10/28/24 07:11 Resp 16 10/28/24 07:11 BP 139/79 10/28/24 07:11 Pulse Ox 95 10/28/24 07:11 FiO2 Intake & Output 10/27/24 10/28/24 10/28/24 18:59 06:59 18:59 Intake Total 2940 590 Output Total 3805 1200 Balance -865 -610 Weight 85 kg Intake: Oral 2940 590 Output: Urine 3805 1200 Other: Voiding Method Urinal Urinal # Bowel Movements 1 - Exam In general patient is alert and oriented x 3 in no distress HEENT head normocephalic and atraumatic Neck is supple no JVD no goiter no lymphadenopathy no carotid bruit Chest examination is clear to auscultation no crackles no wheezing Cardiac exam reveals regular heart sounds S1 and S2 no gallops no murmurs Abdomen is soft nontender no organomegaly with normal bowel sounds Extremity exam reveals left foot swelling and erythema, great toe amputation on the left, right below knee amputation Neurological examination reveals no gross focal deficits - Labs CBC & Chem 7: 10/28/24 07:28 10/28/24 07:28 Labs: Abnormal Lab Results - Last 24 Hours (Table) 10/27/24 10/28/24 10/28/24 Range/Units 16:36 07:28 07:28 WBC 10.7 H (3.8-10.6) k/uL Neutrophils # 8.5 H (1.3-7.7) k/uL Sodium 134 L (137-145) mmol/L Creatinine 0.52 L (0.66-1.25) mg/dL Glucose 128 H (74-99) mg/dL POC Glucose (mg/dL) 170 H (70-110) mg/dL AST 16 L (17-59) U/L Albumin 3.4 L (3.5-5.0) g/dL Microbiology - Last 24 Hours (Table) 10/26/24 21:16 Blood Culture - Preliminary Blood Assessment and Plan Plan: Left foot cellulitis, with failure of treatment with oral antibiotic cephalexin as outpatient Previous history of MRSA infection Severe peripheral vascular disease, with previous history of toe amputation on the left and below knee amputation on the right Underlying history of insulin-dependent diabetes mellitus Underlying history of hypertension Underlying history of gastroesophageal reflux disease Underlying history of peripheral neuropathy Underlying history of tobacco abuse At this time patient was seen and examined Home medications reviewed and reordered Patient was started on IV vancomycin Infectious disease consultation requested He was counseled in length in regard to smoking cessation Will follow closely
[2024-10-28 12:03] LABS: Glucose,Whole Blood 172 mg/dL (70-110)
--- NOTE | 2024-10-28 12:17 | P.PN ---
Subjective Progress Note Date: 10/28/24 Principal diagnosis: Reason for follow-up is left big toe amputation site wound and cellulitis Patient is a 49-year-old male with a past medical history significant for diabetes mellitus reflux hypertension, right below the knee amputation and also have a left big toe amputation subsequent did have nonhealing wound to the left big toe amputation site now admitted with swelling and some drainage from the left big toe potation site. On today's evaluation that is 10/28/2024, Patient is afebrile patient is currently on room air and denies having any shortness of breath, the patient denies any chest pain or cough, the patient denies any nausea vomiting did not have any abdominal pain and no diarrhea, denies any worsening pain to the left foot swelling slightly decreased. The patient white count is 10.7, creatinine 0.52 cultures currently pending Objective - Vital Signs Vital signs: Vital Signs Temp 98.2 F 10/28/24 11:59 Pulse 98 10/28/24 11:59 Resp 16 10/28/24 11:59 BP 133/71 10/28/24 11:59 Pulse Ox 98 10/28/24 11:59 FiO2 Intake & Output 10/27/24 10/28/24 10/28/24 18:59 06:59 18:59 Intake Total 2940 590 480 Output Total 3805 1200 Balance -865 -610 480 Weight 85 kg Intake: Oral 2940 590 480 Output: Urine 3805 1200 Other: Voiding Method Urinal Urinal Urinal # Bowel Movements 1 - Exam GENERAL DESCRIPTION: Middle-age male lying in bed in no distress RESPIRATORY SYSTEM: Unlabored breathing , decreased breath sounds at bases HEART: S1 S2 regular rate and rhythm , ABDOMEN: Soft , no tenderness EXTREMITIES: Left big toe amputation site wound is drying out no drainage - Labs CBC & Chem 7: 10/28/24 07:28 10/28/24 07:28 Labs: Abnormal Lab Results - Last 24 Hours (Table) 10/27/24 10/28/24 10/28/24 Range/Units 16:36 07:28 07:28 WBC 10.7 H (3.8-10.6) k/uL Neutrophils # 8.5 H (1.3-7.7) k/uL Sodium 134 L (137-145) mmol/L Creatinine 0.52 L (0.66-1.25) mg/dL Glucose 128 H (74-99) mg/dL POC Glucose (mg/dL) 170 H (70-110) mg/dL AST 16 L (17-59) U/L Albumin 3.4 L (3.5-5.0) g/dL 10/28/24 Range/Units 12:01 WBC (3.8-10.6) k/uL Neutrophils # (1.3-7.7) k/uL Sodium (137-145) mmol/L Creatinine (0.66-1.25) mg/dL Glucose (74-99) mg/dL POC Glucose (mg/dL) 172 H (70-110) mg/dL AST (17-59) U/L Albumin (3.5-5.0) g/dL Microbiology - Last 24 Hours (Table) 10/26/24 21:16 Blood Culture - Preliminary Blood Assessment and Plan (1) Wound of left foot Current Visit: Yes Status: Acute Code(s): S91.302A - UNSPECIFIED OPEN WOUND, LEFT FOOT, INITIAL ENCOUNTER SNOMED Code(s): 65707632126375601 (2) Cellulitis of left lower leg Current Visit: Yes Status: Acute Code(s): L03.116 - CELLULITIS OF LEFT LOWER LIMB SNOMED Code(s): 690049420 Plan: 1patient with a chronic nonhealing wound to the left foot. Rotation of the left big toe mom present to the hospital with increasing swelling redness and drainage concerning for left foot wound infection and cellulitis likely from g kelly-positive skin evaristo failing outpatient oral Keflex therapy. 2sulfa allergy. 3local culture have been obtained which are currently pending 4we will obtain bone scan to make sure no evidence of any osteo- 5patient will be treated vancomycin pharmacy to dose target trough of 15 while watching kidney function and Vanco trough closely. Dictation was produced using [employer]mb[employer]ation software. please excuse any grammatical, word or spelling errors. Time with Patient: Less than 30
[2024-10-28 17:05] LABS: Glucose,Whole Blood 251 mg/dL (70-110)
[2024-10-28] MEDS: ATORVASTATIN 10 MG TAB PO SCH (21:01)
[2024-10-29 05:38] LABS: C Reactive Protein 2.2 mg/dL (<1.0)
[2024-10-29 10:11] LABS: Basophils # (A) 0.04 X 10*3/uL (0.00-0.10); Basophils % (A) 0.6 %; Eosinophils # (A) 0.21 X 10*3/uL (0.04-0.35); Eosinophils % (A) 3.1 %; HCT 37.2 % (39.6-50.0); Lymphocytes # (A) 2.07 X 10*3/uL (0.90-5.00); Lymphocytes % (A) 30.4 %; MCH 30.3 pg (27.0-32.0); MCHC 32.3 g/dL (32.0-37.0); MCV 93.9 FL (80.0-97.0); Mean Platelet Volume 10.3 FL (9.5-12.2); Monocytes % (A) 8.8 %; NRBC Per 100 WBC 0 X 10*3/uL (0.00-0.01); Neutrophils # (A) 3.85 X 10*3/uL (1.80-7.70); Neutrophils % (A) 56.7 %; Platelet Count 305 X 10*3/uL (140-440); RBC 3.96 X 10*6/uL (4.40-5.60); RDW 12.5 % (11.5-14.5)
[2024-10-29 10:43] LABS: ALT 9 U/L (10-49); AST 10 U/L (14-35); Albumin 3.1 g/dL (3.8-4.9); Albumin/Globulin Ratio 1.35 Ratio (1.60-3.17); Alkaline Phosphatase 79 U/L (41-126); Blood Urea Nitrogen 17.3 mg/dL (9.0-27.0); Calcium 8.1 mg/dL (8.7-10.3); Carbon Dioxide 20.6 mmol/L (21.6-31.8); Chloride 106 mmol/L (96-109); Globulin 2.3 g/dL (1.6-3.3); Glucose 453 mg/dL (70-110); Potassium 4.7 mmol/L (3.5-5.5); Sodium 137 mmol/L (135-145); Total Bilirubin <0.2 mg/dL (0.3-1.2); Total Protein 5.4 g/dL (6.2-8.2)
[2024-10-29] MEDS ORDERED: VANCOMYCIN TROUGH DUE 1 EACH MISC MISCELLANE ONE ×2 (12:00→13:00)
[2024-10-29 12:07] LABS: Glucose,Whole Blood 275 mg/dL (70-110)
[2024-10-29] MEDS: CEFEPIME 2 GM in SODIUM CHLORIDE 0.9% 100 ML IVPB SCH (12:22)
[2024-10-29 14:06] LABS: Erythrocyte Sedimentation Rate 33 mm/Hr (0-15)
[2024-10-29 16:07] LABS: Glucose,Whole Blood 210 mg/dL (70-110)
--- NOTE | 2024-10-29 17:09 | P.PN ---
Subjective Progress Note Date: 10/29/24 Kurt Joseph, is a 49-year-old male, who presented to [facility] emergency room, with a chief complaint of left foot swelling pain and erythema, patient was treated as outpatient with oral Keflex without significant improvement. He was evaluated in the emergency room vital examination on presentation revealed a temperature of 97.9 pulse 93 respirations 17 blood pressure 111/70 Laboratory data revealed a white blood count of 10.7 hemoglobin 13.4 platelet count 336 sodium 134 potassium 5.2 BUN 17 creatinine 0.83 Testing in the emergency room revealed left foot x-ray in the emergency room revealed amputation of the first digit metatarsal without evidence of for osteomyelitis, cellulitis changes are present with soft tissue swelling Patient was admitted to medical floor for further evaluation and treatment. On 10/28/2024 patient is alert and oriented x 3. Patient still having pain and swelling to foot. Patient remains on IV Vanco per infectious disease. Current vital signs temp 98.6, heart rate 98, respiratory rate 16, blood pressure 139/79 with a pulse ox of 95% on room air. Patient denies chest pain or shortness of breath. Patient denies nausea vomiting or diarrhea. Patient denies any urinary burning or frequency On 10/29/2024 patient was seen and examined on the medical floor he is alert and oriented x 3 in no apparent distress he is still complaining of left foot swelling erythema and pain otherwise he denies any complaints there is no fever or chills no headache or dizziness no chest pain no shortness of breath no cough no nausea or vomiting no abdominal pain no diarrhea and no urinary symptoms Objective - Vital Signs Vital signs: Vital Signs Temp 97.9 F 10/29/24 12:02 Pulse 102 H 10/29/24 12:02 Resp 16 10/29/24 12:02 BP 178/100 10/29/24 12:02 Pulse Ox 99 10/29/24 12:02 FiO2 Intake & Output 10/28/24 10/29/24 10/29/24 18:59 06:59 18:59 Intake Total 3720 2510 Output Total 1500 700 Balance 3720 1010 -700 Intake: Intake, IV Titration 740 Amount Sodium Chloride 0.9% 1, 240 000 ml @ 20 mls/hr IV . Q24H [facility] Rx#:[id number] Vancomycin 1,500 mg In 500 Sodium Chloride 0.9% 500 ml 500 ml @ 167 mls/hr IVPB Q8H [facility] Rx#: [id number] Oral 3720 1770 Output: Urine 1500 700 Other: Voiding Method Urinal Urinal Urinal # Voids 5 - Exam In general patient is alert and oriented x 3 in no distress HEENT head normocephalic and atraumatic Neck is supple no JVD no goiter no lymphadenopathy no carotid bruit Chest examination is clear to auscultation no crackles no wheezing Cardiac exam reveals regular heart sounds S1 and S2 no gallops no murmurs Abdomen is soft nontender no organomegaly with normal bowel sounds Extremity exam reveals left foot swelling and erythema, great toe amputation on the left, right below knee amputation Neurological examination reveals no gross focal deficits - Labs CBC & Chem 7: 10/29/24 04:38 10/29/24 04:38 Labs: Abnormal Lab Results - Last 24 Hours (Table) 10/29/24 10/29/24 10/29/24 Range/Units 04:38 04:38 12:06 RBC 3.96 L (4.40-5.60) X 10*6/uL Hgb 12.0 L (13.0-17.0) g/dL Hct 37.2 L (39.6-50.0) % ESR 33 H (0-15) mm/Hr Carbon Dioxide 20.6 L (21.6-31.8) mmol/L Glucose 453 H (70-110) mg/dL POC Glucose (mg/dL) 275 H (70-110) mg/dL Calcium 8.1 L (8.7-10.3) mg/dL Total Bilirubin <0.2 L (0.3-1.2) mg/dL AST 10 L (14-35) U/L ALT 9 L (10-49) U/L C-Reactive Protein 2.2 H (<1.0) mg/dL Total Protein 5.4 L (6.2-8.2) g/dL Albumin 3.1 L (3.8-4.9) g/dL Albumin/Globulin Ratio 1.35 L (1.60-3.17) Ratio 10/29/24 Range/Units 16:03 RBC (4.40-5.60) X 10*6/uL Hgb (13.0-17.0) g/dL Hct (39.6-50.0) % ESR (0-15) mm/Hr Carbon Dioxide (21.6-31.8) mmol/L Glucose (70-110) mg/dL POC Glucose (mg/dL) 210 H (70-110) mg/dL Calcium (8.7-10.3) mg/dL Total Bilirubin (0.3-1.2) mg/dL AST (14-35) U/L ALT (10-49) U/L C-Reactive Protein (<1.0) mg/dL Total Protein (6.2-8.2) g/dL Albumin (3.8-4.9) g/dL Albumin/Globulin Ratio (1.60-3.17) Ratio Microbiology - Last 24 Hours (Table) 10/27/24 13:30 Gram Stain - Preliminary Foot - Left Wound Culture - Preliminary Gram Neg Bacilli Presumptive MRSA 10/26/24 21:16 Blood Culture - Preliminary Blood Assessment and Plan Plan: Left foot cellulitis, with failure of treatment with oral antibiotic cephalexin as outpatient Previous history of MRSA infection Severe peripheral vascular disease, with previous history of toe amputation on the left and below knee amputation on the right Underlying history of insulin-dependent diabetes mellitus Underlying history of hypertension Underlying history of gastroesophageal reflux disease Underlying history of peripheral neuropathy Underlying history of tobacco abuse At this time patient was seen and examined Home medications reviewed and reordered Patient was started on IV vancomycin Infectious disease consultation requested He was counseled in length in regard to smoking cessation Will follow closely
[2024-10-30 07:06] LABS: Glucose,Whole Blood 225 mg/dL (70-110)
[2024-10-30] MEDS: VANCOMYCIN TROUGH DUE 1 EACH MISC MISCELLANE ONE (08:07)
[2024-10-30 08:28] LABS: ALT 14 U/L (4-49); AST 15 U/L (17-59); African American GFR (CKD) >90 (>60 ml/min/1.73 sqM); Albumin 3.8 g/dL (3.5-5.0); Albumin/Globulin Ratio 1.3; Alkaline Phosphatase 95 U/L (38-126); Anion Gap 11 mmol/L; Blood Urea Nitrogen 14 mg/dL (9-20); Calcium 9.1 mg/dL (8.4-10.2); Carbon Dioxide 20 mmol/L (22-30); Chloride 106 mmol/L (98-107); Glucose 229 mg/dL (74-99); Non-African American GFR(CKD) >90 (>60 ml/min/1.73 sqM); Potassium 4.5 mmol/L (3.5-5.1); Sodium 137 mmol/L (137-145); Total Bilirubin 0.4 mg/dL (0.2-1.3); Total Protein 6.8 g/dL (6.3-8.2)
[2024-10-30 10:18] LABS: Basophils # (A) 0.06 X 10*3/uL (0.00-0.10); Basophils % (A) 0.7 %; Eosinophils # (A) 0.27 X 10*3/uL (0.04-0.35); Eosinophils % (A) 3.1 %; HCT 41.5 % (39.6-50.0); HGB 13.4 g/dL (13.0-17.0); Lymphocytes # (A) 2.09 X 10*3/uL (0.90-5.00); Lymphocytes % (A) 24.3 %; MCH 30.5 pg (27.0-32.0); MCHC 32.3 g/dL (32.0-37.0); MCV 94.3 FL (80.0-97.0); Mean Platelet Volume 10.2 FL (9.5-12.2); Monocytes # (A) 0.72 X 10*3/uL (0.20-1.00); Monocytes % (A) 8.4 %; NRBC Per 100 WBC 0 X 10*3/uL (0.00-0.01); Neutrophils # (A) 5.42 X 10*3/uL (1.80-7.70); Neutrophils % (A) 62.9 %; Platelet Count 318 X 10*3/uL (140-440); RDW 12.4 % (11.5-14.5); WBC 8.61 X 10*3/uL (4.50-10.00)
--- NOTE | 2024-10-30 10:21 | P.PN ---
Subjective Progress Note Date: 10/30/24 Kurt Joseph, is a 49-year-old male, who presented to [facility] emergency room, with a chief complaint of left foot swelling pain and erythema, patient was treated as outpatient with oral Keflex without significant improvement. He was evaluated in the emergency room vital examination on presentation revealed a temperature of 97.9 pulse 93 respirations 17 blood pressure 111/70 Laboratory data revealed a white blood count of 10.7 hemoglobin 13.4 platelet count 336 sodium 134 potassium 5.2 BUN 17 creatinine 0.83 Testing in the emergency room revealed left foot x-ray in the emergency room revealed amputation of the first digit metatarsal without evidence of for osteomyelitis, cellulitis changes are present with soft tissue swelling Patient was admitted to medical floor for further evaluation and treatment. On 10/28/2024 patient is alert and oriented x 3. Patient still having pain and swelling to foot. Patient remains on IV Vanco per infectious disease. Current vital signs temp 98.6, heart rate 98, respiratory rate 16, blood pressure 139/79 with a pulse ox of 95% on room air. Patient denies chest pain or shortness of breath. Patient denies nausea vomiting or diarrhea. Patient denies any urinary burning or frequency On 10/29/2024 patient was seen and examined on the medical floor he is alert and oriented x 3 in no apparent distress he is still complaining of left foot swelling erythema and pain otherwise he denies any complaints there is no fever or chills no headache or dizziness no chest pain no shortness of breath no cough no nausea or vomiting no abdominal pain no diarrhea and no urinary symptoms On 10/30/2024 patient is alert and oriented x 3. Patient is adamant he is going home today discussed with patient that we are waiting on ID recommendation in regards to antibiotics patient reports he will leave no matter what and sign out AMA if he has to. Patient educated on the risk of leaving AMA and untreated infection and the risk of . Patient remains on IV vancomycin and cefepime. Objective - Vital Signs Vital signs: Vital Signs Temp 98.1 F 10/30/24 07:05 Pulse 78 10/30/24 07:05 Resp 16 10/30/24 07:05 BP 132/75 10/30/24 07:05 Pulse Ox 99 10/30/24 07:05 FiO2 Intake & Output 0310/30/24 10/30/24 18:59 06:59 18:59 Intake Total 2640 540 Output Total 700 3600 Balance -700 -960 540 Intake: Oral 2640 540 Output: Urine 700 3600 Other: Voiding Method Urinal Urinal Urinal - Exam In general patient is alert and oriented x 3 in no distress HEENT head normocephalic and atraumatic Neck is supple no JVD no goiter no lymphadenopathy no carotid bruit Chest examination is clear to auscultation no crackles no wheezing Cardiac exam reveals regular heart sounds S1 and S2 no gallops no murmurs Abdomen is soft nontender no organomegaly with normal bowel sounds Extremity exam reveals left foot swelling and erythema, great toe amputation on the left, right below knee amputation Neurological examination reveals no gross focal deficits - Labs CBC & Chem 7: 10/30/24 07:48 10/30/24 07:48 Labs: Abnormal Lab Results - Last 24 Hours (Table) 10/29/24 10/29/24 10/29/24 Range/Units 04:38 04:38 12:06 Immature Gran # (0.00-0.04) X 10*3/uL ESR 33 H (0-15) mm/Hr Carbon Dioxide 20.6 L (21.6-31.8) mmol/L Creatinine (0.66-1.25) mg/dL Glucose 453 H (70-110) mg/dL POC Glucose (mg/dL) 275 H (70-110) mg/dL Calcium 8.1 L (8.7-10.3) mg/dL Total Bilirubin <0.2 L (0.3-1.2) mg/dL AST 10 L (14-35) U/L ALT 9 L (10-49) U/L Total Protein 5.4 L (6.2-8.2) g/dL Albumin 3.1 L (3.8-4.9) g/dL Albumin/Globulin Ratio 1.35 L (1.60-3.17) Ratio 10/29/24 10/30/24 10/30/24 Range/Units 16:03 07:04 07:48 Immature Gran # (0.00-0.04) X 10*3/uL ESR (0-15) mm/Hr Carbon Dioxide 20 L (21.6-31.8) mmol/L Creatinine 0.61 L (0.66-1.25) mg/dL Glucose 229 H (70-110) mg/dL POC Glucose (mg/dL) 210 H 225 H (70-110) mg/dL Calcium (8.7-10.3) mg/dL Total Bilirubin (0.3-1.2) mg/dL AST 15 L (14-35) U/L ALT (10-49) U/L Total Protein (6.2-8.2) g/dL Albumin (3.8-4.9) g/dL Albumin/Globulin Ratio (1.60-3.17) Ratio 10/30/24 Range/Units 07:48 Immature Gran # 0.05 H (0.00-0.04) X 10*3/uL ESR (0-15) mm/Hr Carbon Dioxide (21.6-31.8) mmol/L Creatinine (0.66-1.25) mg/dL Glucose (70-110) mg/dL POC Glucose (mg/dL) (70-110) mg/dL Calcium (8.7-10.3) mg/dL Total Bilirubin (0.3-1.2) mg/dL AST (14-35) U/L ALT (10-49) U/L Total Protein (6.2-8.2) g/dL Albumin (3.8-4.9) g/dL Albumin/Globulin Ratio (1.60-3.17) Ratio Microbiology - Last 24 Hours (Table) 10/27/24 13:30 Gram Stain - Final Foot - Left Wound Culture - Final Klebsiella pneumoniae Methicillin resist S. aureus 10/26/24 21:16 Blood Culture - Preliminary Blood Assessment and Plan Plan: Left foot cellulitis, with failure of treatment with oral antibiotic cephalexin as outpatient Previous history of MRSA infection Severe peripheral vascular disease, with previous history of toe amputation on the left and below knee amputation on the right Underlying history of insulin-dependent diabetes mellitus Underlying history of hypertension Underlying history of gastroesophageal reflux disease Underlying history of peripheral neuropathy Underlying history of tobacco abuse At this time patient was seen and examined Home medications reviewed and reordered Patient was started on IV vancomycin Infectious disease consultation requested He was counseled in length in regard to smoking cessation Will follow closely
[2024-10-30] MEDS: VANCOMYCIN 1,500 MG in SODIUM CHLORIDE 0.9% 500 ML 500 ML IVPB SCH (11:18)
--- NOTE | 2024-10-30 13:11 | P.PN ---
Subjective Progress Note Date: 10/29/24 Principal diagnosis: Reason for follow-up is left big toe amputation site wound and cellulitis Patient is a 49-year-old male with a past medical history significant for diabetes mellitus reflux hypertension, right below the knee amputation and also have a left big toe amputation subsequent did have nonhealing wound to the left big toe amputation site now admitted with swelling and some drainage from the left big toe potation site. On today's evaluation that is 10/29/2024, patient has been afebrile, patient is breathing comfortably and is currently on room air, patient denies having any significant cough no chest pain, patient denies nausea vomiting or diarrhea and no abdominal pain pain to the left foot wound is currently controlled. No new lab work today local culture growing gram-negative and MRSA Objective - Vital Signs Vital signs: Vital Signs Temp 97.8 F 10/29/24 07:10 Pulse 83 10/29/24 07:10 Resp 16 10/29/24 07:10 BP 157/81 10/29/24 07:10 Pulse Ox 97 10/29/24 07:10 FiO2 Intake & Output 10/28/24 10/29/24 10/29/24 18:59 06:59 18:59 Intake Total 3720 2510 Output Total 1500 700 Balance 3720 1010 -700 Intake: Intake, IV Titration 740 Amount Sodium Chloride 0.9% 1, 240 000 ml @ 20 mls/hr IV . Q24H [facility] Rx#:[id number] Vancomycin 1,500 mg In 500 Sodium Chloride 0.9% 500 ml 500 ml @ 167 mls/hr IVPB Q8H [facility] Rx#: [id number] Oral 3720 1770 Output: Urine 1500 700 Other: Voiding Method Urinal Urinal # Voids 5 - Exam GENERAL DESCRIPTION: Middle-age male lying in bed in no distress RESPIRATORY SYSTEM: Unlabored breathing , decreased breath sounds at bases HEART: S1 S2 regular rate and rhythm , ABDOMEN: Soft , no tenderness EXTREMITIES: Left big toe amputation site wound is drying out no drainage - Labs CBC & Chem 7: 10/30/24 07:48 10/30/24 07:48 Labs: Abnormal Lab Results - Last 24 Hours (Table) 10/28/24 10/28/24 10/28/24 Range/Units 07:28 12:01 17:03 RBC (4.40-5.60) X 10*6/uL Hgb (13.0-17.0) g/dL Hct (39.6-50.0) % Carbon Dioxide (21.6-31.8) mmol/L Glucose (70-110) mg/dL POC Glucose (mg/dL) 172 H 251 H (70-110) mg/dL Hemoglobin A1c 9.5 H (<=6.0) % Calcium (8.7-10.3) mg/dL Total Bilirubin (0.3-1.2) mg/dL AST (14-35) U/L ALT (10-49) U/L C-Reactive Protein (<1.0) mg/dL Total Protein (6.2-8.2) g/dL Albumin (3.8-4.9) g/dL Albumin/Globulin Ratio (1.60-3.17) Ratio 10/29/24 10/29/24 Range/Units 04:38 04:38 RBC 3.96 L (4.40-5.60) X 10*6/uL Hgb 12.0 L (13.0-17.0) g/dL Hct 37.2 L (39.6-50.0) % Carbon Dioxide 20.6 L (21.6-31.8) mmol/L Glucose 453 H (70-110) mg/dL POC Glucose (mg/dL) (70-110) mg/dL Hemoglobin A1c (<=6.0) % Calcium 8.1 L (8.7-10.3) mg/dL Total Bilirubin <0.2 L (0.3-1.2) mg/dL AST 10 L (14-35) U/L ALT 9 L (10-49) U/L C-Reactive Protein 2.2 H (<1.0) mg/dL Total Protein 5.4 L (6.2-8.2) g/dL Albumin 3.1 L (3.8-4.9) g/dL Albumin/Globulin Ratio 1.35 L (1.60-3.17) Ratio Microbiology - Last 24 Hours (Table) 10/27/24 13:30 Gram Stain - Preliminary Foot - Left Wound Culture - Preliminary Gram Neg Bacilli Presumptive MRSA 10/26/24 21:16 Blood Culture - Preliminary Blood Assessment and Plan (1) Wound of left foot Current Visit: Yes Status: Acute Code(s): S91.302A - UNSPECIFIED OPEN WOUND, LEFT FOOT, INITIAL ENCOUNTER SNOMED Code(s): 03952660696927293 (2) Cellulitis of left lower leg Current Visit: Yes Status: Acute Code(s): L03.116 - CELLULITIS OF LEFT LOWER LIMB SNOMED Code(s): 335073883 Plan: 1patient with a chronic nonhealing wound to the left foot. Rotation of the left big toe mom present to the hospital with increasing swelling redness and drainage concerning for left foot wound infection and cellulitis likely from gram-positive skin evaristo failing outpatient oral Keflex therapy. 2sulfa allergy. 3local culture have been obtained which are currently growing MRSA gram- negative 4we will obtain bone scan to make sure no evidence of any osteo- 5patient will be treated vancomycin pharmacy to dose target trough of 15 we w ill add cefepime to cover for the gram-negative while waiting for ID Dictation was produced using [employer] dictation software. please excuse any grammatical, word or spelling errors. Time with Patient: Less than 30
--- NOTE | 2024-10-30 13:13 | P.PN ---
Subjective Progress Note Date: 10/30/24 Principal diagnosis: Reason for follow-up is left big toe amputation site wound and cellulitis Patient is a 49-year-old male with a past medical history significant for diabetes mellitus reflux hypertension, right below the knee amputation and also have a left big toe amputation subsequent did have nonhealing wound to the left big toe amputation site now admitted with swelling and some drainage from the left big toe potation site. On today's evaluation that is 10/30/2024, Patient is afebrile this morning patient denies having any chest pain shortness of breath or cough, the patient is currently on room air, patient denies any abdominal pain no diarrhea no nause a no vomiting, complaining of more pain to the left knee area today. Local culture with MSSA anaerobe culture negative blood culture from 10/27/2024 so far negative, patient did have a APTT of 48.0 no CBC was done today Objective - Vital Signs Vital signs: Vital Signs Temp 98.4 F 10/30/24 08:00 Pulse 87 10/30/24 08:00 Resp 18 10/30/24 08:00 BP 147/85 10/30/24 08:00 Pulse Ox 98 10/30/24 08:00 FiO2 Intake & Output 10/29/24 10/30/24 10/30/24 18:59 06:59 18:59 Intake Total 2640 540 Output Total 700 3600 525 Balance -700 -960 15 Intake: Oral 2640 540 Output: Urine 700 3600 525 Other: Voiding Method Urinal Urinal Urinal - Exam GENERAL DESCRIPTION: Middle-age male lying in bed in no distress RESPIRATORY SYSTEM: Unlabored breathing , decreased breath sounds at bases HEART: S1 S2 regular rate and rhythm , ABDOMEN: Soft , no tenderness EXTREMITIES: Left big toe amputation site wound is drying out no drainage - Labs CBC & Chem 7: 10/30/24 07:48 10/30/24 07:48 Labs: Abnormal Lab Results - Last 24 Hours (Table) 10/29/24 10/29/24 10/29/24 Range/Units 04:38 12:06 16:03 Immature Gran # (0.00-0.04) X 10*3/uL ESR 33 H (0-15) mm/Hr Carbon Dioxide (22-30) mmol/L Creatinine (0.66-1.25) mg/dL Glucose (74-99) mg/dL POC Glucose (mg/dL) 275 H 210 H (70-110) mg/dL AST (17-59) U/L 10/30/24 10/30/24 10/30/24 Range/Units 07:04 07:48 07:48 Immature Gran # 0.05 H (0.00-0.04) X 10*3/uL ESR (0-15) mm/Hr Carbon Dioxide 20 L (22-30) mmol/L Creatinine 0.61 L (0.66-1.25) mg/dL Glucose 229 H (74-99) mg/dL POC Glucose (mg/dL) 225 H (70-110) mg/dL AST 15 L (17-59) U/L Microbiology - Last 24 Hours (Table) 10/27/24 13:30 Anaerobic Culture - Preliminary Foot - Left Bacteroides fragilis Group 10/27/24 13:30 Gram Stain - Final Foot - Left Wound Culture - Final Klebsiella pneumoniae Methicillin resist S. aureus 10/26/24 21:16 Blood Culture - Preliminary Blood Assessment and Plan (1) Wound of left foot Current Visit: Yes Status: Acute Code(s): S91.302A - UNSPECIFIED OPEN WOUND, LEFT FOOT, INITIAL ENCOUNTER SNOMED Code(s): 15064904858668028 (2) Cellulitis of left lower leg Current Visit: Yes Status: Acute Code(s): L03.116 - CELLULITIS OF LEFT LOWER LIMB SNOMED Code(s): 252507377 Plan: 1patient with a chronic nonhealing wound to the left foot. Rotation of the left big toe mom present to the hospital with increasing swelling redness and drainage concerning for left foot wound infection and cellulitis likely from gram-positive skin evaristo failing outpatient oral Keflex therapy. 2sulfa allergy. 3local culture have been obtained which are currently growing MRSA Klebsiella and bacteroids 4unfortunately patient refused bone scan yesterday he did agree to wait today will be ordered to make sure no evidence of any osteo- 5patient will be treated vancomycin pharmacy to dose target trough of 15 cefepime will add Flagyl to cover for the Bacteroides discharge antibiotic on the basis of bone scan results Dictation was produced using [employer] dictation software. please excuse any grammatical, word or spelling errors. Time with Patient: Less than 30
[2024-10-30] MEDS: metroNIDAZOLE 500 MG TAB PO SCH (16:06)
[2024-10-30 16:56] LABS: Glucose,Whole Blood 242 mg/dL (70-110)
[2024-10-31 05:23] LABS: ALT 12 U/L (4-49); AST 18 U/L (17-59); African American GFR (CKD) >90 (>60 ml/min/1.73 sqM); Albumin 3.5 g/dL (3.5-5.0); Albumin/Globulin Ratio 1.3; Alkaline Phosphatase 77 U/L (38-126); Anion Gap 10 mmol/L; Blood Urea Nitrogen 10 mg/dL (9-20); Calcium 9.3 mg/dL (8.4-10.2); Carbon Dioxide 23 mmol/L (22-30); Chloride 105 mmol/L (98-107); Globulin 2.8 g/dL; Glucose 144 mg/dL (74-99); Non-African American GFR(CKD) >90 (>60 ml/min/1.73 sqM); Potassium 3.8 mmol/L (3.5-5.1); Sodium 138 mmol/L (137-145); Total Bilirubin 0.4 mg/dL (0.2-1.3); Total Protein 6.3 g/dL (6.3-8.2)
[2024-10-31 08:24] LABS: Basophils # (A) 0.05 X 10*3/uL (0.00-0.10); Basophils % (A) 0.7 %; Eosinophils % (A) 4.2 %; HCT 39.2 % (39.6-50.0); HGB 13.1 g/dL (13.0-17.0); Lymphocytes # (A) 1.74 X 10*3/uL (0.90-5.00); Lymphocytes % (A) 24.1 %; MCH 30.7 pg (27.0-32.0); MCHC 33.4 g/dL (32.0-37.0); MCV 91.8 FL (80.0-97.0); Mean Platelet Volume 10.5 FL (9.5-12.2); Monocytes # (A) 0.68 X 10*3/uL (0.20-1.00); Monocytes % (A) 9.4 %; NRBC Per 100 WBC 0 X 10*3/uL (0.00-0.01); Neutrophils # (A) 4.42 X 10*3/uL (1.80-7.70); Neutrophils % (A) 61.2 %; Platelet Count 309 X 10*3/uL (140-440); RBC 4.27 X 10*6/uL (4.40-5.60); RDW 12.5 % (11.5-14.5); WBC 7.22 X 10*3/uL (4.50-10.00)
[2024-10-31 12:07] LABS: Glucose,Whole Blood 176 mg/dL (70-110)
--- NOTE | 2024-10-31 13:56 | NM ---
EXAMINATION TYPE: NM bone 3 phase DATE OF EXAM: 10/31/2024 COMPARISON: Plain film CLINICAL INDICATION: Male, 49 years old with history of Left big toe ulcer rule out osteo; Triple phase bone scintigraphy was performed following the injection of 22.8 mCi Tc 99m MDP. Immedia te images and 5.25 hours post injection images acquired. FINDINGS: Right below knee amputation. Left foot demonstrates increased uptake at the first digit metatarsal he ad region on flow, blood pool and delayed imaging. IMPRESSION: Findings compatible with osteomyelitis of the first digit around the metatarsal head. [facility], , 10/31/2024 1:54 PM
--- NOTE | 2024-10-31 15:19 | P.PN ---
Subjective Progress Note Date: 10/31/24 Principal diagnosis: Reason for follow-up is left big toe amputation site wound and cellulitis Patient is a 49-year-old male with a past medical history significant for diabetes mellitus reflux hypertension, right below the knee amputation and also have a left big toe amputation subsequent did have nonhealing wound to the left big toe amputation site now admitted with swelling and some drainage from the left big toe potation site. On today's evaluation that is 10/31/2024,the patient denies any fever or any chills, patient is breathing comfortably on room air, the patient denies chest pain shortness of breath and no significant cough, patient denies abdominal p ain, no nausea vomiting or diarrhea. Pain to the foot is currently controlled. Patient did have white count of 7.22, creatinine 0.56 CRP 4.1 on admission sed rate of 33 local culture with Klebsiella MRSA and bacteroids Objective - Vital Signs Vital signs: Vital Signs Temp 98.0 F 10/31/24 01:57 Pulse 85 10/31/24 01:57 Resp 12 10/31/24 01:57 BP 155/80 10/31/24 01:57 Pulse Ox 98 10/31/24 01:57 FiO2 Intake & Output 10/30/24 10/31/24 10/31/24 18:59 06:59 18:59 Intake Total 3000 1620 Output Total 2800 2000 Balance 200 -380 Intake: Oral 3000 1620 Output: Urine 2800 2000 Other: Voiding Method Urinal Urinal Urinal - Labs CBC & Chem 7: 10/31/24 04:49 10/31/24 04:49 Labs: Abnormal Lab Results - Last 24 Hours (Table) 10/30/24 10/31/24 10/31/24 Range/Units 16:54 04:49 04:49 RBC 4.27 L (4.40-5.60) X 10*6/uL Hct 39.2 L (39.6-50.0) % Creatinine 0.56 L (0.66-1.25) mg/dL Glucose 144 H (74-99) mg/dL POC Glucose (mg/dL) 242 H (70-110) mg/dL Microbiology - Last 24 Hours (Table) 10/27/24 13:30 Anaerobic Culture - Preliminary Foot - Left Bacteroides fragilis Group 03/29/25 13:30 Gram Stain - Final Foot - Left Wound Culture - Final Klebsiella pneumoniae Methicillin resist S. aureus Assessment and Plan (1) Wound of left foot Current Visit: Yes Status: Acute Code(s): S91.302A - UNSPECIFIED OPEN WOUND, LEFT FOOT, INITIAL ENCOUNTER SNOMED Code(s): 73159782317877602 (2) Cellulitis of left lower leg Current Visit: Yes Status: Acute Code(s): L03.116 - CELLULITIS OF LEFT LOWER LIMB SNOMED Code(s): 634784171 (3) Osteomyelitis of left foot Current Visit: Yes Status: Acute Code(s): M86.9 - OSTEOMYELITIS, UNSPECIFIED SNOMED Code(s): 3401777225361890 Plan: 1patient with a chronic nonhealing wound to the left foot. Rotation of the left big toe mom present to the hospital with increasing swelling redness and drainage concerning for left foot wound infection and cellulitis likely from gram-positive skin evaristo failing outpatient oral Keflex therapy. 2sulfa allergy. 3local culture have been obtained which are currently growing MRSA Klebsiella and bacteroids 4patient bone scan is suggestive of osteomyelitis at the ulcer site, PICC line has been requested plan is for outpatient IV vancomycin Rocephin and Flagyl x 6 weeks once antibiotic arranged will be able to go home from ID standpoint, prescription provided to the manager case management Dictation was produced using [employer] dictation software. please excuse any grammatical, word or spelling errors. Time with Patient: Less than 30
[2024-10-31 17:06] LABS: Glucose,Whole Blood 232 mg/dL (70-110)
[2024-11-01 07:04] LABS: Glucose,Whole Blood 203 mg/dL (70-110)
[2024-11-01 07:20] VITALS: BP 157/89; PULSE 85; RESP 18; TEMP 98.2
[2024-11-01 09:04] LABS: African American GFR (CKD) >90 (>60 ml/min/1.73 sqM); Non-African American GFR(CKD) >90 (>60 ml/min/1.73 sqM)
--- NOTE | 2024-11-01 09:08 | P.DS ---
Providers Date of admission: 10/27/24 00:03 Expected date of discharge: 11/01/24 Attending physician: Kathy Humphrey Consults: 10/27/24 08:29 Consult Physician Routine Consulting Provider: Gagan Faustin Consult Reason/Comments: lower extremity cellulitis Do you want consulting provider notified?: Yes Primary care physician: Kathy Humphrey [facility] Course: Discharge diagnosis Left foot cellulitis, with failure of treatment with oral antibiotic cephalexin as outpatient Previous history of MRSA infection Severe peripheral vascular disease, with previous history of toe amputation on the left and below knee amputation on the right Underlying history of insulin-dependent diabetes mellitus Underlying history of hypertension Underlying history of gastroesophageal reflux disease Underlying history of peripheral neuropathy Underlying history of tobacco abuse Hospital course Kurt Joseph, is a 49-year-old male, who presented to [facility] emergency room, with a chief complaint of left foot swelling pain and erythema, patient was treated as outpatient with oral Keflex without significant improvement. He was evaluated in the emergency room vital examination on presentation revealed a temperature of 97.9 pulse 93 respirations 17 blood pressure 111/70 Laboratory data revealed a white blood count of 10.7 hemoglobin 13.4 platelet count 336 sodium 134 potassium 5.2 BUN 17 creatinine 0.83 Testing in the emergency room revealed left foot x-ray in the emergency room revealed amputation of the first digit metatarsal without evidence of for osteomyelitis, cellulitis changes are present with soft tissue swelling Patient was admitted to medical floor for further evaluation and treatment. On 10/28/2024 patient is alert and oriented x 3. Patient still having pain and swelling to foot. Patient remains on IV Vanco per infectious disease. Current vital signs temp 98.6, heart rate 98, respiratory rate 16, blood pressure 139/79 with a pulse ox of 95% on room air. Patient denies chest pain or shortness of breath. Patient denies nausea vomiting or diarrhea. Patient denies any urinary burning or frequency On 10/29/2024 patient was seen and examined on the medical floor he is alert and oriented x 3 in no apparent distress he is still complaining of left foot swelling erythema and pain otherwise he denies any complaints there is no fever or chills no headache or dizziness no chest pain no shortness of breath no cough no nausea or vomiting no abdominal pain no diarrhea and no urinary symptoms On 10/30/2024 patient is alert and oriented x 3. Patient is adamant he is going home today discussed with patient that we are waiting on ID recommendation in regards to antibiotics patient reports he will leave no matter what and sign out AMA if he has to. Patient educated on the risk of leaving AMA and untreated infection and the risk of . Patient remains on IV vancomycin and cefepime. On 11/01/2024 patient is alert and oriented x 3. Bone scan completed showing evidence of osteomyelitis. Per infectious disease patient will need 6 weeks of IV Rocephin and IV Flagyl and vancomycin. This has been arranged per ID and case management. PICC line has been placed. Patient denies chest pain or shortness of breath. Patient denies nausea vomiting or diarrhea. Patient denies any urinary burning or frequency Patient Condition at Discharge: Stable Plan - Discharge Summary Discharge Rx Participant: Yes New Discharge Prescriptions: New cefTRIAXone [Rocephin] 2,000 mg IVP Q24HR #40 each metroNIDAZOLE [Flagyl] 500 mg PO TID #90 tab Vancomycin HCl in 5 % Dextrose [Vancomycin 1.5 Gram/300 ml-D5w] 1.5 gm IV Q12H #80 each Continue Gabapentin 300 mg PO TID Metoprolol Succinate (ER) [Toprol XL] 25 mg PO DAILY Empagliflozin [Jardiance] 25 mg PO DAILY Atorvastatin [Lipitor] 10 mg PO HS Mupirocin 2% Oint [Bactroban 2% Oint] 1 applic TOPICAL TID Lactulose [Cephulac] 45 gm PO BID L.acidoph,Paracasei, B.lactis [Probiotic] 1 cap PO DAILY Nicotine 21Mg/24Hr Patch [Habitrol] 1 patch TRANSDERM DAILY lisinopriL 2.5 mg PO DAILY HYDROcodone/APAP 10-325MG [Lodi 10-325] 1 tab PO QID PRN PRN Reason: pain Famotidine [Pepcid] 20 mg PO BID Insulin Glargine,Hum.rec.anlog [Lantus Solostar Pen] 40 units SQ DAILY Insulin Lispro [humaLOG Kwikpen] See Protocol SQ AC-TID Docusate [Colace] 100 mg PO BID 30 Days #60 cap Discontinued Cephalexin [Keflex] 500 mg PO QID Discharge Medication List Empagliflozin [Jardiance] 25 mg PO DAILY 05/12/23 [History] Famotidine [Pepcid] 20 mg PO BID 05/12/23 [History] Gabapentin 300 mg PO TID 05/12/23 [History] HYDROcodone/APAP 10-325MG [[place] 10-325] 1 tab PO QID PRN 05/12/23 [History] Metoprolol Succinate (ER) [Toprol XL] 25 mg PO DAILY 05/12/23 [History] lisinopriL 2.5 mg PO DAILY 05/12/23 [History] Atorvastatin [Lipitor] 10 mg PO HS 10/17/24 [History] Insulin Glargine,Hum.rec.anlog [Lantus Solostar Pen] 40 units SQ DAILY 10/17/24 [History] Insulin Lispro [humaLOG Kwikpen] See Protocol SQ AC-TID 10/17/24 [History] Mupirocin 2% Oint [Bactroban 2% Oint] 1 applic TOPICAL TID 10/17/24 [History] Docusate [Colace] 100 mg PO BID 30 Days #60 cap 10/19/24 [Rx] L.acidoph,Paracasei, B.lactis [Probiotic] 1 cap PO DAILY 10/27/24 [History] Lactulose [Cephulac] 45 gm PO BID 10/27/24 [History] Nicotine 21Mg/24Hr Patch [Habitrol] 1 patch TRANSDERM DAILY 10/27/24 [History] Vancomycin HCl in 5 % Dextrose [Vancomycin 1.5 Gram/300 ml-D5w] 1.5 gm IV Q12H #80 each 10/31/24 [Rx] cefTRIAXone [Rocephin] 2,000 mg IVP Q24HR #40 each 10/31/24 [Rx] metroNIDAZOLE [Flagyl] 500 mg PO TID #90 tab 10/31/24 [Rx] Follow up Appointment(s)/Ref[facility] - [facility], [REFERRING] - 1 Week Kathy Humphrey MD [Primary Care Provider] - 1-2 days Gagan Faustin MD [STAFF PHYSICIAN] - 1 Week Ambulatory/Diagnostic Orders: Basic Metabolic Panel [LAB.AMB] Location: None Selected C Reactive Protein [LAB.AMB] Location: None Selected Complete Blood Count w/diff [LAB.AMB] Location: None Selected Erythrocyte Sedimentation Rate [LAB.AMB] Location: None Selected Discharge Disposition: HOME WITH HOME HEALTH SERVICES
[2024-11-01] MEDS: VANCOMYCIN TROUGH DUE 1 EACH MISC MISCELLANE ONE (10:10)
--- NOTE | 2024-11-01 10:39 | P.PN ---
Subjective Progress Note Date: 10/31/24 Kurt Joseph, is a 49-year-old male, who presented to [facility] emergency room, with a chief complaint of left foot swelling pain and erythema, patient was treated as outpatient with oral Keflex without significant improvement. He was evaluated in the emergency room vital examination on presentation revealed a temperature of 97.9 pulse 93 respirations 17 blood pressure 111/70 Laboratory data revealed a white blood count of 10.7 hemoglobin 13.4 platelet count 336 sodium 134 potassium 5.2 BUN 17 creatinine 0.83 Testing in the emergency room revealed left foot x-ray in the emergency room revealed amputation of the first digit metatarsal without evidence of for osteomyelitis, cellulitis changes are present with soft tissue swelling Patient was admitted to medical floor for further evaluation and treatment. On 10/28/2024 patient is alert and oriented x 3. Patient still having pain and swelling to foot. Patient remains on IV Vanco per infectious disease. Current vital signs temp 98.6, heart rate 98, respiratory rate 16, blood pressure 139/79 with a pulse ox of 95% on room air. Patient denies chest pain or shortness of breath. Patient denies nausea vomiting or diarrhea. Patient denies any urinary burning or frequency On 10/29/2024 patient was seen and examined on the medical floor he is alert and oriented x 3 in no apparent distress he is still complaining of left foot swelling erythema and pain otherwise he denies any complaints there is no fever or chills no headache or dizziness no chest pain no shortness of breath no cough no nausea or vomiting no abdominal pain no diarrhea and no urinary symptoms On 10/30/2024 patient is alert and oriented x 3. Patient is adamant he is going home today discussed with patient that we are waiting on ID recommendation in regards to antibiotics patient reports he will leave no matter what and sign out AMA if he has to. Patient educated on the risk of leaving AMA and untreated infection and the risk of . Patient remains on IV vancomycin and cefepime. On 10/31/2024 patient was seen and examined on the medical floor he is alert and oriented x 3 in no apparent distress there is no fever or chills no headache or dizziness no chest pain no shortness of breath no cough no nausea or vomiting no abdominal pain no diarrhea and no urinary symptoms. He is scheduled for a bone nuclear scan today. Objective - Vital Signs Vital signs: Vital Signs Temp 98.0 F 10/31/24 01:57 Pulse 85 10/31/24 01:57 Resp 12 10/31/24 01:57 BP 155/80 10/31/24 01:57 Pulse Ox 98 10/31/24 01:57 FiO2 Intake & Output 10/30/24 10/31/24 10/31/24 18:59 06:59 18:59 Intake Total 3000 1620 Output Total 2800 2000 Balance 200 -380 Intake: Oral 3000 1620 Output: Urine 2800 2000 Other: Voiding Method Urinal Urinal - Exam In general patient is alert and oriented x 3 in no distress HEENT head normocephalic and atraumatic Neck is supple no JVD no goiter no lymphadenopathy no carotid bruit Chest examination is clear to auscultation no crackles no wheezing Cardiac exam reveals regular heart sounds S1 and S2 no gallops no murmurs Abdomen is soft nontender no organomegaly with normal bowel sounds Extremity exam reveals left foot swelling and erythema, great toe amputation on the left, right below knee amputation Neurological examination reveals no gross focal deficits - Labs CBC & Chem 7: 10/31/24 04:49 11/01/24 07:53 Labs: Abnormal Lab Results - Last 24 Hours (Table) 10/30/24 10/30/24 10/30/24 Range/Units 07:48 07:48 16:54 Immature Gran # 0.05 H (0.00-0.04) X 10*3/uL Carbon Dioxide 20 L (22-30) mmol/L Creatinine 0.61 L (0.66-1.25) mg/dL Glucose 229 H (74-99) mg/dL POC Glucose (mg/dL) 242 H (70-110) mg/dL AST 15 L (17-59) U/L 10/31/24 Range/Units 04:49 Immature Gran # (0.00-0.04) X 10*3/uL Carbon Dioxide (22-30) mmol/L Creatinine 0.56 L (0.66-1.25) mg/dL Glucose 144 H (74-99) mg/dL POC Glucose (mg/dL) (70-110) mg/dL AST (17-59) U/L Microbiology - Last 24 Hours (Table) 10/27/24 13:30 Anaerobic Culture - Preliminary Foot - Left Bacteroides fragilis Group 10/27/24 13:30 Gram Stain - Final Foot - Left Wound Culture - Final Klebsiella pneumoniae Methicillin resist S. aureus 10/26/24 21:16 Blood Culture - Preliminary Blood Assessment and Plan Plan: Left foot cellulitis, with failure of treatment with oral antibiotic cephalexin as outpatient Previous history of MRSA infection Severe peripheral vascular disease, with previous history of toe amputation on the left and below knee amputation on the right Underlying history of insulin-dependent diabetes mellitus Underlying history of hypertension Underlying history of gastroesophageal reflux disease Underlying history of peripheral neuropathy Underlying history of tobacco abuse At this time patient was seen and examined Home medications reviewed and reordered Patient was started on IV vancomycin Infectious disease consultation requested He was counseled in length in regard to smoking cessation Will follow closely
--- NOTE | 2024-11-01 15:28 | P.PN ---
Subjective Progress Note Date: 11/01/24 Principal diagnosis: Reason for follow-up is left big toe amputation site wound and cellulitis Patient is a 49-year-old male with a past medical history significant for diabetes mellitus reflux hypertension, right below the knee amputation and also have a left big toe amputation subsequent did have nonhealing wound to the left big toe amputation site now admitted with swelling and some drainage from the left big toe potation site. On today's evaluation that is 11/01/2024,the patient remains to be afebrile, patient is on room air not requiring supplemental oxygen and denies any shortness of breath no chest pain or cough.Patient denies having any nausea or vomiting, no abdominal pain and no diarrhea, pain to the foot is currently controlled. Patient did have a creatinine 0.62 Vanco trough is 14.4 Objective - Vital Signs Vital signs: Vital Signs Temp 98.2 F 11/01/24 07:01 Pulse 85 11/01/24 07:01 Resp 18 11/01/24 07:01 BP 157/89 11/01/24 07:01 Pulse Ox 99 11/01/24 07:01 FiO2 Intake & Output 10/31/24 11/01/24 11/01/24 18:59 06:59 18:59 Intake Total 600 Output Total 1700 1300 Balance -1100 -1300 Intake: Intake, IV Titration 600 Amount Cefepime 2 gm In Sodium 100 Chloride 0.9% 100 ml @ 25 mls/hr IVPB Q8H TIMOTHY Rx#: [id number] Vancomycin 1,500 mg In 500 Sodium Chloride 0.9% 500 ml 500 ml @ 167 mls/hr IVPB Q12H TIMOTHY Rx#: [id number] Output: Urine 1700 1300 Other: Voiding Method Urinal Urinal Urinal # Voids 200 - Exam GENERAL DESCRIPTION: Middle-age male lying in bed in no distress RESPIRATORY SYSTEM: Unlabored breathing , decreased breath sounds at bases HEART: S1 S2 regular rate and rhythm , ABDOMEN: Soft , no tenderness EXTREMITIES: Left big toe amputation site wound is drying out no drainage - Labs CBC & Chem 7: 10/31/24 04:49 11/01/24 07:53 Labs: Abnormal Lab Results - Last 24 Hours (Table) 10/31/24 10/31/24 11/01/24 Range/Units 12:06 17:05 07:03 Creatinine (0.66-1.25) mg/dL POC Glucose (mg/dL) 176 H 232 H 203 H (70-110) mg/dL 11/01/24 Range/Units 07:53 Creatinine 0.62 L (0.66-1.25) mg/dL POC Glucose (mg/dL) (70-110) mg/dL Microbiology - Last 24 Hours (Table) 10/27/24 13:30 Anaerobic Culture - Final Foot - Left Bacteroides fragilis Group 10/26/24 21:16 Blood Culture - Final Blood Assessment and Plan (1) Wound of left foot Status: Acute Code(s): S91.302A - UNSPECIFIED OPEN WOUND, LEFT FOOT, INITIAL ENCOUNTER SNOMED Code(s): 62843473069348633 (2) Cellulitis of left lower leg Status: Acute Code(s): L03.116 - CELLULITIS OF LEFT LOWER LIMB SNOMED Code(s): 962193003 (3) Osteomyelitis of left foot Status: Acute Code(s): M86.9 - OSTEOMYELITIS, UNSPECIFIED SNOMED Code(s): 8510064559460286 Plan: 1patient with a chronic nonhealing wound to the left foot. Rotation of the left big toe mom present to the hospital with increasing swelling redness and drainage concerning for left foot wound infection and cellulitis likely from gram-positive skin evaristo failing outpatient oral Keflex therapy. 2sulfa allergy. 3local culture have been obtained which are currently growing MRSA Klebsiella and bacteroids 4patient bone scan is suggestive of osteomyelitis at the ulcer site, PICC line has been placed outpatient IV vancomycin Rocephin has been arranged for the patient prescription for Flagyl was already sent detailed discussion with the nursing staff and close outpatient follow-up Dictation was produced using [employer] dictation software. please excuse any grammatical, word or spelling errors. Time with Patient: Less than 30
[2024-11-01] MEDS ORDERED: VANCOMYCIN 1,750 MG in SODIUM CHLORIDE 0.9% 500 ML 500 ML IVPB SCH (21:00)
== END 2024-11-01 14:31 | disposition home health service (06) ==
LOC: EC 18:49 → 5NMEDONC 10-27 00:03
PROVIDERS: ADMIT Internal Medicine; ATTEND Internal Medicine
DX: L03.116 Cellulitis of left lower limb (principal); B96.1 Klebsiella pneumoniae [K. pneumoniae] as the cause of diseases classified elsewhere; M17.11 Unilateral primary osteoarthritis, right knee; M86.9 Osteomyelitis, unspecified; E11.51 Type 2 diabetes mellitus with diabetic peripheral angiopathy without gangrene; E11.40 Type 2 diabetes mellitus with diabetic neuropathy, unspecified; E78.5 Hyperlipidemia, unspecified; F17.210 Nicotine dependence, cigarettes, uncomplicated; I10 Essential (primary) hypertension; K21.9 Gastro-esophageal reflux disease without esophagitis; Z79.4 Long term (current) use of insulin; Z79.84 Long term (current) use of oral hypoglycemic drugs; Z79.899 Other long term (current) drug therapy; Z86.14 Personal history of Methicillin resistant Staphylococcus aureus infection; Z89.422 Acquired absence of other left toe(s); Z89.511 Acquired absence of right leg below knee
CPT/HCPCS: 96376 ×2; 96365 ×3; 96366 ×6; 96367; 96375 ×2; 96368 ×3; 99285; 36415; 93005; 36573; 80053 ×5; 85652; 82565; 83605; 85025 ×5; 80202 ×3; 86140 ×2; 87040; 87070; 87205; 87075; 87077; 87186; 83036; 73620; 93971; 78315; G0378 ×6; C1751; A9503; S4990 ×6; J3370 ×6; J2405; J0696; J0692 ×4; J0131; J1885 ×2

== ENCOUNTER 2024-12-01 21:31 | Observation (INO) | payer OTHER ==
[2024-12-01] MEDS: SODIUM CHLORIDE 0.9% 1,000 ML IV STA (22:30)
[2024-12-01 22:43] LABS: Basophils % (A) 0.6 %; Eosinophils # (A) 0.01 10*3/uL (0.04-0.35); Eosinophils % (A) 0.1 %; HCT 50.3 % (39.6-50.0); HGB 17.7 g/dL (13.0-17.0); Lymphocytes # (A) 1.46 10*3/uL (0.90-5.00); Lymphocytes % (A) 9.1 %; MCH 31.7 pg (27.0-32.0); MCHC 35.2 g/dL (32.0-37.0); MCV 90.1 fL (80.0-97.0); Mean Platelet Volume 10.5 fL (9.5-12.2); Monocytes # (A) 0.44 10*3/uL (0.20-1.00); Monocytes % (A) 2.8 %; Neutrophils # (A) 13.87 10*3/uL (1.80-7.70); Neutrophils % (A) 86.9 %; Platelet Count 254 10*3/uL (140-440); RBC 5.58 10*6/uL (4.40-5.60); RDW 12.5 % (11.5-14.5); WBC 15.96 10*3/uL (4.50-10.00)
[2024-12-01] MEDS: diphenhydrAMINE 50 MG/ML 1 ML VIAL IVP STA (22:44)
[2024-12-01] MEDS: METOCLOPRAMIDE 5 MG/ML 2 ML VIAL IVP STA (22:46)
[2024-12-01 23:00] LABS: ALT 14 U/L (4-49); AST 20 U/L (17-59); African American GFR (CKD) >90 (>60 ml/min/1.73 sqM); Albumin 4.7 g/dL (3.5-5.0); Alkaline Phosphatase 83 U/L (38-126); Anion Gap 20 mmol/L; Blood Urea Nitrogen 21 mg/dL (9-20); Calcium 10.2 mg/dL (8.4-10.2); Carbon Dioxide 17 mmol/L (22-30); Chloride 101 mmol/L (98-107); Glucose 255 mg/dL (74-99); Lipase 58 U/L (23-300); Non-African American GFR(CKD) >90 (>60 ml/min/1.73 sqM); Potassium 4.4 mmol/L (3.5-5.1); Sodium 138 mmol/L (137-145); Total Bilirubin 1.2 mg/dL (0.2-1.3)
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
[2024-12-02 00:40] LABS: Appearance,Urine Clear (Clear); Bilirubin,Urine Negative (Negative); Blood,Urine Trace (Negative); Color,Urine Colorless; Glucose,Urine (UA) 4+ (Negative); Leukocyte Esterase,Urine Negative (Negative); Mucus,Urine Rare /hpf; Nitrite,Urine Negative (Negative); Protein,Urine 2+ (Negative); RBC,Urine 2 /hpf (0-5); Specific Gravity,Urine 1.037 (1.001-1.035); Urobilinogen,Urine <2.0 mg/dL (<2.0); WBC,Urine 1 /hpf (0-5)
[2024-12-02] MEDS ORDERED: NALOXONE 0.4 MG/ML 1 ML VIAL IV PRN (00:41)
[2024-12-02] MEDS: HYDROmorphone 1 MG/ML 1 ML SYRINGE IVP STA (00:45)
[2024-12-02] MEDS: ONDANSETRON 4 MG/2 ML VIAL IVP STA (00:49)
[2024-12-02] MEDS ORDERED: DEXTROSE 50% SYRINGE 50 ML IVP PRN ×2 (00:51)
[2024-12-02 00:53] LABS: Ketones,Urine 4+ (Negative)
[2024-12-02 00:59] LABS: Glucose,Whole Blood 231 mg/dL (70-110)
[2024-12-02] MEDS: SODIUM CHLORIDE 0.9% 1,000 ML IV SCH ×2 (02:46→15:50)
[2024-12-02] MEDS: HYDROcodone/APAP 10-325MG 1 EACH TAB PO PRN (04:57)
[2024-12-02] MEDS: ONDANSETRON 4 MG/2 ML VIAL IVP PRN (05:39)
[2024-12-02 06:26] LABS: Glucose,Whole Blood 235 mg/dL (70-110)
[2024-12-02] MEDS: INSULIN LISPRO (HumaLOG) 100 UNIT/ML 10 mL VL SQ SCH (06:29)
[2024-12-02] MEDS: INSULIN GLARGINE (LANTUS) 100 UNIT/ML SYR SQ SCH (06:31)
[2024-12-02] MEDS ORDERED: VANCOMYCIN IV PER PHARMACY 1 EACH MISC MISCELLANE PRN (07:54)
[2024-12-02] MEDS: METOCLOPRAMIDE 5 MG/ML 2 ML VIAL IVP PRN (08:10)
[2024-12-02] MEDS: METOPROLOL SUCCINATE (ER) 25 MG TAB.ER.24H PO SCH (08:10)
[2024-12-02] MEDS: NICOTINE 21MG/24HR PATCH TRANSDERM SCH (08:10)
[2024-12-02] MEDS: PANTOPRAZOLE 40 MG/10 ML VIAL IV SCH (08:10)
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
[2024-12-02] MEDS: ENOXAPARIN 40 MG/0.4 ML SYRINGE SQ SCH (09:37)
[2024-12-02] MEDS: VANCOMYCIN 1,500 MG in SODIUM CHLORIDE 0.9% 500 ML 500 ML IVPB SCH (10:18)
[2024-12-02 11:32] LABS: Glucose,Whole Blood 196 mg/dL (70-110)
--- NOTE | 2024-12-02 11:59 | US ---
EXAMINATION TYPE: US abdomen complete DATE OF EXAM: 12/02/2024 COMPARISON: CT abdomen and pelvis October 17, 2024 CLINICAL INDICATION: Male, 49 years old with history of n/v; vomiting TECHNIQUE: Grayscale and color Doppler imaging of the abdomen was performed. FINDINGS: EXAM MEASUREMENTS: Liver Length: 13.6 cm Gallbladder Wall: 0.2 cm CBD: 0.3 cm Spleen: 8.7 cm Right Kidney: 11.7 x 5.5 x 4.7 cm Left Kidney: 12.3 x 5.4 x 5.4 cm Pancreas: Tail obscured by overlying bowel gas Liver: appears wnl Gallbladder: layer of stones posteriorly Evidence for sonographic Cardenas's sign: no CBD: limited evaluation Spleen: wnl Right Kidney: wnl, No hydronephrosis, calculi or masses seen Left Kidney: wnl, No hydronephrosis, calculi or masses seen Upper IVC: wnl Abd Aorta: wnl The liver is homogenous. The intrahepatic portion of the IVC and visualized abdominal aorta are with in normal limits. There are intraluminal small stones. No pericholecystic fluid or abnormal wall thi ckening. Common bile duct is unremarkable. The visualized portions of the pancreas are homogenous. The spleen is unremarkable. Kidneys are symmetric and free of hydronephrosis. No renal lesions are seen. IMPRESSION: Gallstones without sonographic evidence for acute cholecystitis. No acute findings are pr esent. [facility], , 12/02/2024 11:57 AM
[2024-12-02 16:30] LABS: Glucose,Whole Blood 181 mg/dL (70-110)
[2024-12-02] MEDS: metroNIDAZOLE-NS PMX 500 MG in SALINE 1 100ML.BAG IVPB SCH (17:14)
[2024-12-02] MEDS: cefTRIAXone 2 GM in DEXTROSE 5% IN WATER 50 ML IVPB SCH (18:16)
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
[2024-12-03 05:57] LABS: Glucose,Whole Blood 127 mg/dL (70-110)
[2024-12-03 06:58] LABS: Potassium 3.6 mmol/L (3.5-5.1)
[2024-12-03 07:00] LABS: African American GFR (CKD) >90 (>60 ml/min/1.73 sqM); Anion Gap 13 mmol/L; Blood Urea Nitrogen 17 mg/dL (9-20); C Reactive Protein <0.5 mg/dL (<1.0); Calcium 9.2 mg/dL (8.4-10.2); Carbon Dioxide 18 mmol/L (22-30); Chloride 105 mmol/L (98-107); Glucose 112 mg/dL (74-99); Non-African American GFR(CKD) >90 (>60 ml/min/1.73 sqM); Sodium 136 mmol/L (137-145)
[2024-12-03 07:12] LABS: Basophils # (A) 0.08 10*3/uL (0.00-0.10); Basophils % (A) 0.6 %; Eosinophils # (A) 0.01 10*3/uL (0.04-0.35); Eosinophils % (A) 0.1 %; HCT 41.2 % (39.6-50.0); Lymphocytes # (A) 2.21 10*3/uL (0.90-5.00); Lymphocytes % (A) 16.9 %; MCH 31.2 pg (27.0-32.0); MCV 91.8 fL (80.0-97.0); Mean Platelet Volume 10.1 fL (9.5-12.2); Monocytes # (A) 0.85 10*3/uL (0.20-1.00); Monocytes % (A) 6.5 %; Neutrophils # (A) 9.87 10*3/uL (1.80-7.70); Neutrophils % (A) 75.5 %; Platelet Count 199 10*3/uL (140-440); RBC 4.49 10*6/uL (4.40-5.60); RDW 12.9 % (11.5-14.5); WBC 13.07 10*3/uL (4.50-10.00)
[2024-12-03 09:27] VITALS: TEMP 97.7
[2024-12-03 11:30] LABS: Glucose,Whole Blood 134 mg/dL (70-110)
[2024-12-03 15:06] VITALS: RESP 16
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
[2024-12-03 16:50] LABS: Glucose,Whole Blood 131 mg/dL (70-110)
[2024-12-04] MEDS ORDERED: VANCOMYCIN TROUGH DUE 1 EACH MISC MISCELLANE ONE (08:00)
[2024-12-04 08:11] LABS: African American GFR (CKD) >90 (>60 ml/min/1.73 sqM); Non-African American GFR(CKD) >90 (>60 ml/min/1.73 sqM)
[2024-12-04 08:35] VITALS: BP 151/73; PULSE 99
--- NOTE | 2024-12-04 08:51 | P.PN ---
Subjective Progress Note Date: 12/03/24 Kurt Joseph, is a 49-year-old male patient who presented with concerns of acute nausea and vomiting. Patient reports that his nausea and vomiting started yesterday without relief with Zofran at home. Patient denies any recent illness. Patient does have a PICC line in which he receives IV antibiotics V anco and Rocephin for osteomyelitis per Dr. Faustin additional medical history includes diabetes mellitus, GERD, hypertension, MRSA, everyday smoker, depression and right lower extremity amputation. Lab work completed showing white blood cell 15.96, hemoglobin 17.7, creatinine 0.65, bun 21. Lipase 58 glucose on admission 255. UA positive for ketones. At this time patient will be admitted patient restarted on IV antibiotics. Patient started on sliding scale and long-acting insulin. Dr. Rust consulted patient started on clear liquid diet. On 12/04/2024 patient is alert and oriented x 3. Abdomen ultrasound completed showing gallstones with out sonographic evidence for acute cholecystitis no acute findings are present. Surgical services consulted patient remains on IV antibiotics for osteomyelitis infectious disease services following blood sugars improving. Current vital signs temp 97.7, heart rate 96, respiratory rate 16, blood pressure 149/77 with pulse ox 100% on room air Objective - Vital Signs Vital signs: Vital Signs Temp 97.7 F 12/03/24 08:00 Pulse 97 12/03/24 08:00 Resp 18 12/03/24 08:00 BP 143/62 12/03/24 08:00 Pulse Ox 98 12/03/24 08:00 FiO2 Intake & Output 12/02/24 12/03/24 12/03/24 18:59 06:59 18:59 Intake Total 1440 110 240 Output Total 1700 1100 650 Balance -260 -990 -410 Weight 86 kg Intake: IV 10 Invasive Line 1 10 Intake, IV Titration 100 Amount metroNIDAZOLE-NS PMX 500 100 mg In Saline 1 100ml.bag @ 100 mls/hr IVPB Q8HR [facility] Rx#:[id number] Oral 1440 240 Output: Urine 1700 1100 650 Other: Voiding Method Bedside Commode Urinal # Voids 1 1 # Bowel Movements 1 1 - Exam Head normocephalic Neck supple Lungs clear to auscultation bilaterally no wheezing or crackles Heart regular rate and rhythm S1-S2, no rub or gallop Abdomen is soft nontender nondistended positive bowel sounds no hepatosplenomegaly Extremities no edema. Right lower extremity amputation. Left foot cellulitis Neuro alert and orientated to 3 - Labs CBC & Chem 7: 12/03/24 06:36 12/04/24 07:29 Labs: Abnormal Lab Results - Last 24 Hours (Table) 12/01/24 12/02/24 12/03/24 Range/Units 22:29 16:28 05:56 WBC (4.50-10.00) 10*3/uL Immature Gran # (0.00-0.04) 10*3/uL Neutrophils # (1.80-7.70) 10*3/uL Eosinophils # (0.04-0.35) 10*3/uL Sodium (137-145) mmol/L Carbon Dioxide (22-30) mmol/L Creatinine (0.66-1.25) mg/dL Glucose (74-99) mg/dL POC Glucose (mg/dL) 181 H 127 H (70-110) mg/dL Hemoglobin A1c 10.0 H (<=6.0) % 12/03/24 12/03/24 12/03/24 Range/Units 06:02 06:36 11:29 WBC 13.07 H (4.50-10.00) 10*3/uL Immature Gran # 0.05 H (0.00-0.04) 10*3/uL Neutrophils # 9.87 H (1.80-7.70) 10*3/uL Eosinophils # 0.01 L (0.04-0.35) 10*3/uL Sodium 136 L (137-145) mmol/L Carbon Dioxide 18 L (22-30) mmol/L Creatinine 0.59 L (0.66-1.25) mg/dL Glucose 112 H (74-99) mg/dL POC Glucose (mg/dL) 134 H (70-110) mg/dL Hemoglobin A1c (<=6.0) % Assessment and Plan Assessment: 1. Nausea and vomiting secondary diabetic ketoacidosis 2. Left foot cellulitis with osteomyelitis patient currently on outpatient IV Vanco and IV Rocephin follows with infectious disease 3. History of severe peripheral vascular disease with previous history of toe amputation on the left and below-knee amputation on the right 4. History of insulin-dependent diabetes mellitus 5. History of essential hypertension 6. History of GERD 7. History of peripheral neuropathy 8. History of ongoing tobacco use 9. History of marijuana use DVT prophylaxis Lovenox. GI prophylax Protonix Infectious disease services consulted Patient started back on IV antibiotics Repeat labs ordered Patient started on clear liquid diet
--- NOTE | 2024-12-04 08:53 | P.PN ---
Subjective Progress Note Date: 12/04/24 Kurt Joseph, is a 49-year-old male patient who presented with concerns of acute nausea and vomiting. Patient reports that his nausea and vomiting started yesterday without relief with Zofran at home. Patient denies any recent illness. Patient does have a PICC line in which he receives IV antibiotics V anco and Rocephin for osteomyelitis per Dr. Faustin additional medical history includes diabetes mellitus, GERD, hypertension, MRSA, everyday smoker, depression and right lower extremity amputation. Lab work completed showing white blood cell 15.96, hemoglobin 17.7, creatinine 0.65, bun 21. Lipase 58 glucose on admission 255. UA positive for ketones. At this time patient will be admitted patient restarted on IV antibiotics. Patient started on sliding scale and long-acting insulin. Dr. Rust consulted patient started on clear liquid diet. On 12/03/2024 patient is alert and oriented x 3. Abdomen ultrasound completed showing gallstones with out sonographic evidence for acute cholecystitis no acute findings are present. Surgical services consulted patient remains on IV antibiotics for osteomyelitis infectious disease services following blood sugars improving. Current vital signs temp 97.7, heart rate 96, respiratory rate 16, blood pressure 149/77 with pulse ox 100% on room air On 12/04/2024 patient is alert and oriented x 3. Per surgical services planning for surgical cholecystectomy today. Patient currently NPO. Patient denies chest pain or shortness of breath. Patient denies nausea vomiting or diarrhea. Patient denies any urinary burning or frequency Objective - Vital Signs Vital signs: Vital Signs Temp 97.7 F 12/03/24 11:21 Pulse 99 12/04/24 07:20 Resp 16 12/03/24 11:21 BP 151/73 12/04/24 07:20 Pulse Ox 96 12/04/24 07:20 FiO2 Intake & Output 12/03/24 12/04/24 12/04/24 18:59 06:59 18:59 Intake Total 240 Output Total 650 900 Balance -410 -900 Weight 59.5 kg Intake: Oral 240 Output: Urine 650 900 Other: Voiding Method Urinal # Voids 6 3 - Exam Head normocephalic Neck supple Lungs clear to auscultation bilaterally no wheezing or crackles Heart regular rate and rhythm S1-S2, no rub or gallop Abdomen is soft nontender nondistended positive bowel sounds no hepatosplenomeg uriel Extremities no edema. Right lower extremity amputation. Left foot cellulitis Neuro alert and orientated to 3 - Labs CBC & Chem 7: 12/03/24 06:36 12/04/24 07:29 Labs: Abnormal Lab Results - Last 24 Hours (Table) 12/01/24 12/03/24 12/03/24 Range/Units 22:29 11:29 16:40 Creatinine (0.66-1.25) mg/dL POC Glucose (mg/dL) 134 H 131 H (70-110) mg/dL Hemoglobin A1c 10.0 H (<=6.0) % 12/04/24 Range/Units 07:29 Creatinine 0.59 L (0.66-1.25) mg/dL POC Glucose (mg/dL) (70-110) mg/dL Hemoglobin A1c (<=6.0) % Assessment and Plan Assessment: 1. Nausea and vomiting secondary diabetic ketoacidosis 2. Left foot cellulitis with osteomyelitis patient currently on outpatient IV Vanco and IV Rocephin follows with infectious disease 3. History of severe peripheral vascular disease with previous history of toe amputation on the left and below-knee amputation on the right 4. History of insulin-dependent diabetes mellitus 5. History of essential hypertension 6. History of GERD 7. History of peripheral neuropathy 8. History of ongoing tobacco use 9. History of marijuana use 10. Cholelithiasis. Plans for laparoscopic cholecystectomy on 12/04/2024 DVT prophylaxis Lovenox. GI prophylax Protonix Infectious disease services consulted Patient started back on IV antibiotics Repeat labs ordered Patient started on clear liquid diet
[2024-12-04 13:48] VITALS: BMI 17.8
--- NOTE | 2024-12-04 14:06 | P.DS ---
Providers Date of admission: 12/02/24 00:49 Expected date of discharge: 12/04/24 Attending physician: Kathy Humphrey Consults: 12/02/24 08:07 Consult Physician Routine Consulting Provider: Gagan Faustin Consult Reason/Comments: wounds-home abx Do you want consulting provider notified?: Yes 12/03/24 14:24 Consult Physician Routine Consulting Provider: Oren Fierro Consult Reason/Comments: cholelithiasis Do you want consulting provider notified?: Yes Primary care physician: Kathy Humphrey [facility] Course: Discharge diagnosis 1. Nausea and vomiting secondary diabetic ketoacidosis 2. Left foot cellulitis with osteomyelitis patient currently on outpatient IV Vanco and IV Rocephin follows with infectious disease 3. History of severe peripheral vascular disease with previous history of toe amputation on the left and below-knee amputation on the right 4. History of insulin-dependent diabetes mellitus 5. History of essential hypertension 6. History of GERD 7. History of peripheral neuropathy 8. History of ongoing tobacco use 9. History of marijuana use 10. Cholelithiasis. Plans for laparoscopic cholecystectomy on 12/04/2024 Hospital course Kurt Joseph, is a 49-year-old male patient who presented with concerns of acute nausea and vomiting. Patient reports that his nausea and vomiting started yesterday without relief with Zofran at home. Patient denies any recent illness. Patient does have a PICC line in which he receives IV antibiotics Vanco and Rocephin for osteomyelitis per Dr. Faustin additional medical history includes diabetes mellitus, GERD, hypertension, MRSA, everyday smoker, depression and right lower extremity amputation. Lab work completed showing white blood cell 15.96, hemoglobin 17.7, creatinine 0.65, bun 21. Lipase 58 glucose on admission 255. UA positive for ketones. At this time patient will be admitted patient restarted on IV antibiotics. Patient started on sliding scale and long-acting insulin. Dr. Rust consulted patient started on clear liquid diet. On 12/03/2024 patient is alert and oriented x 3. Abdomen ultrasound completed showing gallstones with out sonographic evidence for acute cholecystitis no acute findings are present. Surgical services consulted patient remains on IV antibiotics for osteomyelitis infectious disease services following blood sugars improving. Current vital signs temp 97.7, heart rate 96, respiratory rate 16, blood pressure 149/77 with pulse ox 100% on room air On 12/04/2024 patient is alert and oriented x 3. Per surgical services planning for surgical cholecystectomy today. Patient currently NPO. Patient denies chest pain or shortness of breath. Patient denies nausea vomiting or diarrhea. Patient denies any urinary burning or frequency Patient declined cholecystectomy and wants to be discharged home. Patient to resume IV antibiotics for osteomyelitis. Patient to follow-up outpatient for further management Patient Condition at Discharge: Stable Plan - Discharge Summary Discharge Rx Participant: No New Discharge Prescriptions: Continue Gabapentin 300 mg PO TID Metoprolol Succinate (ER) [Toprol XL] 25 mg PO DAILY Empagliflozin [Jardiance] 25 mg PO DAILY Atorvastatin [Lipitor] 10 mg PO HS Mupirocin 2% Oint [Bactroban 2% Oint] 1 applic TOPICAL TID Lactulose [Cephulac] 30 gm PO BID L.acidoph,Paracasei, B.lactis [Probiotic] 1 cap PO DAILY Nicotine 21Mg/24Hr Patch [Habitrol] 1 patch TRANSDERM DAILY cefTRIAXone [Rocephin] 2,000 mg IVP Q24HR #40 each lisinopriL 2.5 mg PO DAILY HYDROcodone/APAP 10-325MG [[place] 10-325] 1 tab PO QID PRN PRN Reason: pain Famotidine [Pepcid] 20 mg PO DAILY Insulin Glargine,Hum.rec.anlog [Lantus Solostar Pen] 40 units SQ DAILY Insulin Lispro [humaLOG Kwikpen] See Protocol SQ AC-TID Docusate [Colace] 100 mg PO BID 30 Days #60 cap metroNIDAZOLE [Flagyl] 500 mg PO TID #90 tab Vancomycin HCl in 5 % Dextrose [Vancomycin 1.5 Gram/300 ml-D5w] 1.5 gm IV Q12H #80 each Ondansetron [Zofran] 4 mg PO Q6H PRN PRN Reason: Nausea Discharge Medication List Empagliflozin [Jardiance] 25 mg PO DAILY 05/12/23 [History] Famotidine [Pepcid] 20 mg PO DAILY 05/12/23 [History] Gabapentin 300 mg PO TID 05/12/23 [History] HYDROcodone/APAP 10-325MG [[place] 10-325] 1 tab PO QID PRN 05/12/23 [History] Metoprolol Succinate (ER) [Toprol XL] 25 mg PO DAILY 05/12/23 [History] lisinopriL 2.5 mg PO DAILY 05/12/23 [History] Atorvastatin [Lipitor] 10 mg PO HS 10/17/24 [History] Insulin Glargine,Hum.rec.anlog [Lantus Solostar Pen] 40 units SQ DAILY 10/17/24 [History] Insulin Lispro [humaLOG Kwikpen] See Protocol SQ AC-TID 10/17/24 [History] Mupirocin 2% Oint [Bactroban 2% Oint] 1 applic TOPICAL TID 10/17/24 [History] Docusate [Colace] 100 mg PO BID 30 Days #60 cap 10/19/24 [Rx] L.acidoph,Paracasei, B.lactis [Probiotic] 1 cap PO DAILY 10/27/24 [History] Lactulose [Cephulac] 30 gm PO BID 10/27/24 [History] Nicotine 21Mg/24Hr Patch [Habitrol] 1 patch TRANSDERM DAILY 10/27/24 [History] Vancomycin HCl in 5 % Dextrose [Vancomycin 1.5 Gram/300 ml-D5w] 1.5 gm IV Q12H #80 each 10/31/24 [Rx] cefTRIAXone [Rocephin] 2,000 mg IVP Q24HR #40 each 10/31/24 [Rx] metroNIDAZOLE [Flagyl] 500 mg PO TID #90 tab 10/31/24 [Rx] Ondansetron [Zofran] 4 mg PO Q6H PRN 12/02/24 [History] Follow up Appointment(s)/Referral(s): Kathy Humphrey MD [Primary Care Provider] - 1-2 days Discharge Disposition: HOME SELF-CARE
--- NOTE | 2024-12-04 14:08 | P.PN ---
Subjective Progress Note Date: 12/03/24 Principal diagnosis: Reason for follow-up is left diabetic foot ulcer osteomyelitis Patient is a 49-year-old male with a past medical history of kidney for diabetes mellitus reflux hypertension also have a history of left big toe amputation site diabetic foot ulcer nonhealing with underlying osteomyelitis and culture positive for MRSA Klebsiella and Bacteroides for the patient has been getting outpatient IV vancomycin Rocephin and Flagyl patient will be admitted [facility] for intractable nausea vomiting ultrasound with a gallstone but no cholecystitis. On today's evaluation that is 12/03/2024,the patient denies any fever or any chills, patient is breathing comfortably on room air, the patient denies chest pain shortness of breath and no significant cough, patient denies abdominal pain, still some nausea but no vomiting and no diarrhea. Patient white count is down to 13.07, creatinine 0.59 Objective - Vital Signs Vital signs: Vital Signs Temp 97.7 F 12/03/24 08:00 Pulse 97 12/03/24 08:00 Resp 18 12/03/24 08:00 BP 143/62 12/03/24 08:00 Pulse Ox 98 12/03/24 08:00 FiO2 Intake & Output 12/02/24 12/03/24 12/03/24 18:59 06:59 18:59 Intake Total 1440 110 240 Output Total 1700 1100 650 Balance -260 -990 -410 Weight 86 kg Intake: IV 10 Invasive Line 1 10 Intake, IV Titration 100 Amount metroNIDAZOLE-NS PMX 500 100 mg In Saline 1 100ml.bag @ 100 mls/hr IVPB Q8HR [facility] Rx#:[id number] Oral 1440 240 Output: Urine 1700 1100 650 Other: Voiding Method Bedside Commode Urinal # Voids 1 1 # Bowel Movements 1 1 - Exam GENERAL DESCRIPTION: Middle-age male lying in bed in no distress RESPIRATORY SYSTEM: Unlabored breathing , decreased breath sounds at bases HEART: S1 S2 regular rate and rhythm , ABDOMEN: Soft , no tenderness EXTREMITIES: Left foot is currently dressed - Labs CBC & Chem 7: 12/03/24 06:36 12/04/24 07:29 Labs: Abnormal Lab Results - Last 24 Hours (Table) 12/01/24 12/02/24 12/03/24 Range/Units 22:29 16:28 05:56 WBC (4.50-10.00) 10*3/uL Immature Gran # (0.00-0.04) 10*3/uL Neutrophils # (1.80-7.70) 10*3/uL Eosinophils # (0.04-0.35) 10*3/uL Sodium (137-145) mmol/L Carbon Dioxide (22-30) mmol/L Creatinine (0.66-1.25) mg/dL Glucose (74-99) mg/dL POC Glucose (mg/dL) 181 H 127 H (70-110) mg/dL Hemoglobin A1c 10.0 H (<=6.0) % 12/03/24 12/03/24 12/03/24 Range/Units 06:02 06:36 11:29 WBC 13.07 H (4.50-10.00) 10*3/uL Immature Gran # 0.05 H (0.00-0.04) 10*3/uL Neutrophils # 9.87 H (1.80-7.70) 10*3/uL Eosinophils # 0.01 L (0.04-0.35) 10*3/uL Sodium 136 L (137-145) mmol/L Carbon Dioxide 18 L (22-30) mmol/L Creatinine 0.59 L (0.66-1.25) mg/dL Glucose 112 H (74-99) mg/dL POC Glucose (mg/dL) 134 H (70-110) mg/dL Hemoglobin A1c (<=6.0) % Assessment and Plan (1) Diabetic ulcer of left foot Current Visit: Yes Status: Acute Code(s): E11.621 - TYPE 2 DIABETES MELLITUS WITH FOOT ULCER; L97.529 - NON-PRESSURE CHRONIC ULCER OTH PRT LEFT FOOT W UNSP SEVERITY SNOMED Code(s): 415698367 (2) Osteomyelitis of left foot Current Visit: No Status: Acute Code(s): M86.9 - OSTEOMYELITIS, UNSPECIFIED SNOMED Code(s): 3031162130196220 Plan: 1patient with recent admission to the hospital with left big toe amputation site wound and underlying osteomyelitis on the basis of bone scan local culture positive for MRSA Klebsiella and Bacteroides for the patient has been receiving outpatient IV vancomycin Rocephin Flagyl now presenting the hospital intractable nausea and vomiting and did have gallstones but no evidence of cholecystitis surgery has been consulted 2patient currently being treated with vancomycin pharmacy to dose Rocephin and Flagyl while waiting for condition to stabilize and monitor clinical course closely Dictation was produced using [employer] dictation software. please excuse any grammatical, word or spelling errors. Time with Patient: Less than 30
--- NOTE | 2024-12-04 14:09 | P.PN ---
Subjective Progress Note Date: 12/04/24 Principal diagnosis: Reason for follow-up is left diabetic foot ulcer osteomyelitis Patient is a 49-year-old male with a past medical history of kidney for diabetes mellitus reflux hypertension also have a history of left big toe amputation site diabetic foot ulcer nonhealing with underlying osteomyelitis and culture positive for MRSA Klebsiella and Bacteroides for the patient has been getting outpatient IV vancomycin Rocephin and Flagyl patient will be admitted ho [facility] for intractable nausea vomiting ultrasound with a gallstone but no cholecystitis. On today's evaluation that is 12/04/2024,the patient remains to be afebrile, patient is on room air not requiring supplemental oxygen and denies any shortness of breath no chest pain or cough.Patient still have some nausea but no vomiting, no abdominal pain and no diarrhea has been reported. No CBC was done today his creatinine 0.59 Objective - Vital Signs Vital signs: Vital Signs Temp 97.7 F 12/03/24 11:21 Pulse 99 12/04/24 07:35 Resp 16 12/04/24 07:35 BP 151/73 12/04/24 07:20 Pulse Ox 96 12/04/24 07:20 FiO2 Intake & Output 12/03/24 12/04/24 12/04/24 18:59 06:59 18:59 Intake Total 240 Output Total 650 900 700 Balance -410 -900 -700 Weight 59.5 kg 59.5 kg Intake: Oral 240 Output: Urine 650 900 700 Other: Voiding Method Urinal Urinal # Voids 6 3 - Exam GENERAL DESCRIPTION: Middle-age male lying in bed in no distress RESPIRATORY SYSTEM: Unlabored breathing , decreased breath sounds at bases HEART: S1 S2 regular rate and rhythm , ABDOMEN: Soft , no tenderness EXTREMITIES: Left foot is currently dressed - Labs CBC & Chem 7: 12/03/24 06:36 12/04/24 07:29 Labs: Abnormal Lab Results - Last 24 Hours (Table) 12/03/24 12/04/24 Range/Units 16:40 07:29 Creatinine 0.59 L (0.66-1.25) mg/dL POC Glucose (mg/dL) 131 H (70-110) mg/dL Assessment and Plan (1) Diabetic ulcer of left foot Current Visit: Yes Status: Acute Code(s): E11.621 - TYPE 2 DIABETES MELLITUS WITH FOOT ULCER; L97.529 - NON-PRESSURE CHRONIC ULCER OTH PRT LEFT FOOT W UNSP SEVERITY SNOMED Code(s): 143566775 (2) Osteomyelitis of left foot Current Visit: No Status: Acute Code(s): M86.9 - OSTEOMYELITIS, UNSPECIFIED SNOMED Code(s): 4239825954287433 Plan: 1patient with recent admission to the hospital with left big toe amputation site wound and underlying osteomyelitis on the basis of bone scan local culture positive for MRSA Klebsiella and Bacteroides for the patient has been receiving outpatient IV vancomycin Rocephin Flagyl now presenting the hospital intractable nausea and vomiting and did have gallstones but no evidence of cholecystitis surgery has been consulted 2patient advised to continue with vancomycin pharmacy to dose Rocephin and Flagyl to finish 6-week course of therapy and close outpatient follow-up Dictation was produced using [employer] dictation software. please excuse any grammatical, word or spelling errors. Time with Patient: Less than 30
--- NOTE | 2024-12-04 15:23 | P.PN ---
Subjective Progress Note Date: 12/04/24 Principal diagnosis: Intractable vomiting Patient decided against having the cholecystectomy at this time. Is asking for discharge. Tentative plans for discharge underway. No abdominal pain. Nausea and vomiting improved. Objective - Vital Signs Vital signs: Vital Signs Temp 97.7 F 12/03/24 11:21 Pulse 99 12/04/24 07:35 Resp 16 12/04/24 07:35 BP 151/73 12/04/24 07:20 Pulse Ox 96 12/04/24 07:20 FiO2 Intake & Output 12/03/24 12/04/24 12/04/24 18:59 06:59 18:59 Intake Total 240 Output Total 650 900 700 Balance -410 -900 -700 Weight 59.5 kg 59.5 kg Intake: Oral 240 Output: Urine 650 900 700 Other: Voiding Method Urinal Urinal # Voids 6 3 - Exam Abdomen: Soft, nontender, nondistended - Labs CBC & Chem 7: 12/03/24 06:36 12/04/24 07:29 Labs: Abnormal Lab Results - Last 24 Hours (Table) 12/03/24 12/04/24 Range/Units 16:40 07:29 Creatinine 0.59 L (0.66-1.25) mg/dL POC Glucose (mg/dL) 131 H (70-110) mg/dL Assessment and Plan (1) Nausea and vomiting Narrative/Plan: 49-year-old male with nausea and vomiting. Etiology primarily thought to be related to diabetic ketoacidosis with associated gastroparesis. Underlying chronic cholecystitis not excluded. Patient was scheduled for laparoscopic cholecystectomy today to see if that would assist with his recurrent episodes of vomiting. Patient decided he wanted to hold off on that for now which is certainly not unreasonable. He will follow-up with us as outpatient. Current Visit: Yes Status: Acute Code(s): R11.2 - NAUSEA WITH VOMITING, UNSPECIFIED SNOMED Code(s): 70110967
[2024-12-04] MEDS ORDERED: VANCOMYCIN 1,500 MG in SODIUM CHLORIDE 0.9% 500 ML 500 ML IVPB SCH (22:00)
== END 2024-12-04 16:18 | disposition home or self-care (01) ==
LOC: EC 21:31 → 6NMEDSUR 12-02 00:49 → 3SCARD 12-02 04:25 → 4SSUR 12-03 11:26
PROVIDERS: ADMIT Internal Medicine; ATTEND Internal Medicine
DX: E11.10 Type 2 diabetes mellitus with ketoacidosis without coma (principal); L03.116 Cellulitis of left lower limb; M86.9 Osteomyelitis, unspecified; E11.51 Type 2 diabetes mellitus with diabetic peripheral angiopathy without gangrene; E11.621 Type 2 diabetes mellitus with foot ulcer; L97.529 Non-pressure chronic ulcer of other part of left foot with unspecified severity; K80.20 Calculus of gallbladder without cholecystitis without obstruction; R19.7 Diarrhea, unspecified; F17.210 Nicotine dependence, cigarettes, uncomplicated; K21.9 Gastro-esophageal reflux disease without esophagitis; I10 Essential (primary) hypertension; M17.11 Unilateral primary osteoarthritis, right knee; Z79.4 Long term (current) use of insulin; Z79.84 Long term (current) use of oral hypoglycemic drugs; Z79.899 Other long term (current) drug therapy; Z86.14 Personal history of Methicillin resistant Staphylococcus aureus infection; Z89.412 Acquired absence of left great toe; Z89.422 Acquired absence of other left toe(s); Z89.511 Acquired absence of right leg below knee; Z88.5 Allergy status to narcotic agent; Z88.2 Allergy status to sulfonamides
CPT/HCPCS: 96376 ×3; 96361 ×3; 96365; 96366 ×3; 96367; 96375 ×3; 96368; 99284; 36415; 80053; 80048; 85652; 82565; 82009; 83605; 83690; 85025 ×2; 80202; 86140; 81001; 83036; 76700; G0378 ×5; S4990; J3370 ×3; J1200; J2765 ×4; J2405 ×3; J0696 ×3; J1171; J1836 ×3; J2470 ×3

== ENCOUNTER 2025-02-04 12:34 | Inpatient (IN) | payer OTHER ==
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
[2025-02-04] MEDS: SODIUM CHLORIDE 0.9% 1,000 ML IV STA ×2 (12:55→14:55)
[2025-02-04] MEDS: ONDANSETRON 4 MG/2 ML VIAL IVP STA (12:55)
[2025-02-04 13:02] LABS: Glucose,Whole Blood 191 mg/dL (70-110)
[2025-02-04 13:13] LABS: Basophils # (A) 0.04 10*3/uL (0.00-0.10); Basophils % (A) 0.3 %; Eosinophils # (A) 0.01 10*3/uL (0.04-0.35); Eosinophils % (A) 0.1 %; HCT 50.5 % (39.6-50.0); Lymphocytes # (A) 1.20 10*3/uL (0.90-5.00); Lymphocytes % (A) 9.2 %; MCH 30.9 pg (27.0-32.0); MCHC 34.3 g/dL (32.0-37.0); MCV 90.2 fL (80.0-97.0); Monocytes # (A) 0.28 10*3/uL (0.20-1.00); Monocytes % (A) 2.1 %; Neutrophils # (A) 11.50 10*3/uL (1.80-7.70); Neutrophils % (A) 87.9 %; RBC 5.60 10*6/uL (4.40-5.60); RDW 12.6 % (11.5-14.5); WBC 13.08 10*3/uL (4.50-10.00)
[2025-02-04 13:32] LABS: HGB 17.3 g/dL (13.0-17.0)
[2025-02-04 13:33] LABS: African American GFR (CKD) >90 (>60 ml/min/1.73 sqM); Anion Gap 21 mmol/L; Blood Urea Nitrogen 21 mg/dL (9-20); Calcium 10.5 mg/dL (8.4-10.2); Carbon Dioxide 16 mmol/L (22-30); Chloride 104 mmol/L (98-107); Glucose 205 mg/dL (74-99); Non-African American GFR(CKD) >90 (>60 ml/min/1.73 sqM); Sodium 141 mmol/L (137-145)
[2025-02-04 13:37] LABS: Potassium 5.3 mmol/L (3.5-5.1)
[2025-02-04 14:08] LABS: Platelet Count 236 10*3/uL (140-440)
[2025-02-04] MEDS: METOCLOPRAMIDE 5 MG/ML 2 ML VIAL IVP STA (14:55)
[2025-02-04] MEDS ORDERED: Potassium Replacement Protocol 1 EACH MISC MISCELLANE PRN (15:02)
[2025-02-04] MEDS ORDERED: Magnesium Replacement Protocol 1 EACH MISC MISCELLANE PRN (15:02)
[2025-02-04] MEDS ORDERED: DEXTROSE 50% SYRINGE 50 ML IVP PRN ×2 (15:02)
[2025-02-04 15:35] LABS: Glucose,Whole Blood 198 mg/dL (70-110)
[2025-02-04] MEDS: INSULIN REGULAR BOLUS (FROM DRIP BAG) IV ONE (15:47)
[2025-02-04] MEDS: SODIUM CHLORIDE 0.9% 1,000 ML IV SCH (15:48)
[2025-02-04] MEDS: D5-0.45% NACL WITH KCL 20MEQ/L 1,000 ML IV SCH (15:52)
[2025-02-04] MEDS ORDERED: NALOXONE 0.4 MG/ML 1 ML VIAL IV PRN (15:59)
[2025-02-04] MEDS: INSULIN REGULAR 100 UNIT in SODIUM CHLORIDE 0.9% 100 ML IV SCH (16:25)
[2025-02-04 17:04] LABS: African American GFR (CKD) >90 (>60 ml/min/1.73 sqM); Anion Gap 18 mmol/L; Blood Urea Nitrogen 23 mg/dL (9-20); Carbon Dioxide 17 mmol/L (22-30); Chloride 106 mmol/L (98-107); Glucose 218 mg/dL (74-99); Non-African American GFR(CKD) >90 (>60 ml/min/1.73 sqM); Potassium 4.7 mmol/L (3.5-5.1); Sodium 141 mmol/L (137-145)
[2025-02-04] MEDS: HYDROcodone/APAP 10-325MG 1 EACH TAB PO ONE (17:14)
[2025-02-04 17:48] LABS: Glucose,Whole Blood 210 mg/dL (70-110)
[2025-02-04 18:31] LABS: Glucose,Whole Blood 147 mg/dL (70-110)
[2025-02-04 19:46] LABS: Glucose,Whole Blood 122 mg/dL (70-110)
[2025-02-04 20:45] LABS: Glucose,Whole Blood 142 mg/dL (70-110)
[2025-02-04 21:16] LABS: African American GFR (CKD) >90 (>60 ml/min/1.73 sqM); Anion Gap 18 mmol/L; Blood Urea Nitrogen 24 mg/dL (9-20); Carbon Dioxide 16 mmol/L (22-30); Chloride 103 mmol/L (98-107); Glucose 128 mg/dL (74-99); Non-African American GFR(CKD) >90 (>60 ml/min/1.73 sqM); Potassium 4.5 mmol/L (3.5-5.1); Sodium 137 mmol/L (137-145)
[2025-02-04] MEDS: DOCUSATE 100 MG CAP PO SCH (21:23)
[2025-02-04] MEDS: FAMOTIDINE 20 MG TAB PO SCH (21:36)
[2025-02-04] MEDS: ATORVASTATIN 10 MG TAB PO SCH (21:37)
[2025-02-04] MEDS: GABAPENTIN 300 MG CAP PO SCH (21:37)
[2025-02-04] MEDS: HYDROcodone/APAP 10-325MG 1 EACH TAB PO SCH (21:37)
[2025-02-04] MEDS: ONDANSETRON ODT 4 MG TAB PO PRN (22:00)
[2025-02-04 22:06] LABS: Glucose,Whole Blood 175 mg/dL (70-110)
[2025-02-04 23:06] LABS: Glucose,Whole Blood 159 mg/dL (70-110)
[2025-02-05 00:17] VITALS: TEMP 98.3
[2025-02-05 00:20] LABS: Glucose,Whole Blood 159 mg/dL (70-110)
[2025-02-05 01:09] LABS: Glucose,Whole Blood 160 mg/dL (70-110)
[2025-02-05 02:58] LABS: Glucose,Whole Blood 145 mg/dL (70-110)
[2025-02-05 04:10] LABS: Glucose,Whole Blood 141 mg/dL (70-110)
[2025-02-05 05:00] LABS: Glucose,Whole Blood 145 mg/dL (70-110)
[2025-02-05 05:26] LABS: African American GFR (CKD) >90 (>60 ml/min/1.73 sqM); Anion Gap 11 mmol/L; Blood Urea Nitrogen 20 mg/dL (9-20); Carbon Dioxide 20 mmol/L (22-30); Chloride 105 mmol/L (98-107); Glucose 144 mg/dL (74-99); Non-African American GFR(CKD) >90 (>60 ml/min/1.73 sqM); Potassium 4.4 mmol/L (3.5-5.1); Sodium 136 mmol/L (137-145)
[2025-02-05] MEDS: HYDROcodone/APAP 10-325MG 1 EACH TAB PO PRN (05:58)
[2025-02-05 06:00] VITALS: BP 139/87; PULSE 95; RESP 18
[2025-02-05 06:02] LABS: Glucose,Whole Blood 167 mg/dL (70-110)
[2025-02-05] MEDS: INSULIN GLARGINE (LANTUS) 100 UNIT/ML SYR SQ SCH (06:53)
[2025-02-05] MEDS ORDERED: METOPROLOL SUCCINATE (ER) 25 MG TAB.ER.24H PO SCH (09:00)
[2025-02-05] MEDS ORDERED: DAPAGLIFLOZIN PROPANEDIOL 10 MG TABLET PO SCH (09:00)
[2025-02-05 09:05] LABS: African American GFR (CKD) >90 (>60 ml/min/1.73 sqM); Anion Gap 15 mmol/L; Blood Urea Nitrogen 20 mg/dL (9-20); Carbon Dioxide 19 mmol/L (22-30); Chloride 105 mmol/L (98-107); Glucose 162 mg/dL (74-99); Non-African American GFR(CKD) >90 (>60 ml/min/1.73 sqM); Potassium 4.4 mmol/L (3.5-5.1); Sodium 139 mmol/L (137-145)
== END 2025-02-05 09:39 | disposition left against medical advice (07) | DRG 420 ==
LOC: EC 12:34 → 3SCARD 15:59
PROVIDERS: ADMIT Internal Medicine; ATTEND Internal Medicine
DX: E11.10 Type 2 diabetes mellitus with ketoacidosis without coma (principal); F17.200 Nicotine dependence, unspecified, uncomplicated; M17.11 Unilateral primary osteoarthritis, right knee; Z79.4 Long term (current) use of insulin; Z79.891 Long term (current) use of opiate analgesic; Z79.84 Long term (current) use of oral hypoglycemic drugs; Z79.899 Other long term (current) drug therapy; Z89.412 Acquired absence of left great toe; Z89.511 Acquired absence of right leg below knee; Z86.14 Personal history of Methicillin resistant Staphylococcus aureus infection; Z91.198 Patient's noncompliance with other medical treatment and regimen for other reason
CPT/HCPCS: 36415; 80048; 80051; 82009; 82565; 82947; 84100; 84520; 85025; 93005; 96361; 96365; 96366; 96375; 99291